=== PATIENT | female | born 1955 | race Caucasian/White ===

== ENCOUNTER 2017-05-30 07:33 | Day surgery (SDC) | payer OTHER, SELFPAY ==
[2017-05-29 15:21] VITALS: BMI 37.5
[2017-05-30 08:23] VITALS: BP 102/59; PULSE 66; RESP 18; TEMP 37.1; O2SAT 97
[2017-05-30 08:54] LABS: Basophils # 0.1 K/mm3 (0-0.2); Basophils % 0.7 % (0.1-2.0); Eosinophils # 0.3 K/mm3 (0.0-0.4); Eosinophils % 4.5 % (0.1-12.0); Hematocrit 39.1 % (37.0-47.0); Hemoglobin 13.1 g/dL (12.2-16.2); Lymphocytes # 1.9 K/mm3 (0.7-4.5); Lymphocytes % 25.2 K/mm3 (10-50); Mean Corpuscular HGB Conc 33.7 g/dL (31.8-35.4); Mean Corpuscular Hemoglobin 28.5 pg (27.0-31.2); Mean Corpuscular Volume 84.6 fl (81-99); Mean Platelet Volume 7.6 fl (7.4-10.4); Monocytes # 0.4 K/mm3 (0.1-1.0); Neutrophils # 4.9 K/mm3 (1.8-7.8); Neutrophils % 64.7 % (37.0-80.0); Platelet Count 343 K/mm3 (142-424); Red Blood Count 4.62 M/mm3 (4.20-5.40); Red Cell Distribution Width 14.1 % (11.5-17.5); White Blood Count 7.6 K/mm3 (4.8-10.8)
[2017-05-30 08:55] LABS: POC Glucose,Bedside 154 mg/dL
--- NOTE | 2017-05-30 08:58 | P.PN_ITS ---
[facility] Anesthesia Checklist - Patient Identification Patient Identification: Arm Band, Verbal (Name & ) - Structural Data Admitted From: Home Planned Operative Procedure/s: pacmaker generator change Consent for Planned Operative Procedure(s) Verified: Yes Verified Documents: Surgical Consent - NPO Status Verified Time NPO: 00:00 - Chart Verification Results Verified: CBC, BMP - Additional verifications Patient : No Anesthesia Reactions: No Hx Blood Transfusions: No Blood Transfusion Reaction: No - Cardiovascular Assessment Heart Sounds: S1 & S2 Pulse Strength: Baseline Pulse Rhythm: Regular Peripheral Edema: No - Airway Assessment C-Spine Mobility Assessed: Yes TMJ Mobility Assessed: Yes Dentition: Edentulous - Neurological Assessment Level of Consciousness: Awake, Alert, Appropriate Hx Seizures: No Numbness or tingling in extremities: No - Genitourinary Assessment Voided health information manager to O.R.: Yes - Anesthesia Plan Anesthesia Risk discussed: Yes Anesthesia Plan: Verified ASA Class: III Anesthesia Type: MAC [facility] Anesthesia HX I have reviewed the patient's past medical history: Yes Medical History: Reports:: Diabetes Mellitus Type 2 (borderline), Hyperlipidemia , Hypertension, Internal Pacemaker Denies:: Cancer, Diabetes Mellitus Type 1, MRSA, Seizures Other Surgeries: Yes: , Hernia Repair, Pacemaker, Tubal Ligation Amputation: No *Family Hx:: Coronary Artery Disease, Heart Attack, Hypertension
[2017-05-30 09:00] LABS: Anion Gap 15.2 mEq/L (5-15); Blood Urea Nitrogen 29 mg/dL (7-18); Carbon Dioxide 25 mmol/L (21.0-32.0); Chloride 102 mmol/L (98-107); Creatinine Clearance Estimated 89 mL/min (0-300); Creatinine,Serum 1.08 mg/dL (0.55-1.02); Estimated Glomerular Filt Rate 51 ml/min (>60); GFR (African American) 62 ML/MIN (>60); Glucose 151 mg/dL (74-106); Potassium 4.2 mmoL/L (3.5-5.1); Sodium 138 mmol/L (136-145)
[2017-05-30 10:53] VITALS: BP 109/72; PULSE 70; RESP 18; TEMP 36.2; O2SAT 96
--- NOTE | 2017-05-30 11:03 | XR_ITS ---
XR chest portable HISTORY: ITS.REASON: PACEMAKER GENERATOR CHANGE ORDERING PHYSICIAN: Pedrito Gongora MD PATIENT AGE: 61 years COMPARISON: None available FINDINGS: The cardiomediastinal silhouette and pulmonary vascularity are within normal limits. Bipolar pacemaker is present from left subclavian approach. No evidence of pneumothorax or other complication. There is a 9 mm nodular opacity left lung base medially and may be due to granuloma. Follow-up PA and lateral chest may be of further value. IMPRESSION: Pacemaker present without evidence of acute complication
[2017-05-30 11:08] VITALS: BP 85/63; PULSE 70; RESP 18; TEMP 36.2; O2SAT 96
[2017-05-30 11:23] VITALS: BP 92/56; PULSE 70; RESP 18; TEMP 36.2; O2SAT 96
[2017-05-30 11:38] VITALS: BP 90/51; PULSE 69; RESP 18; TEMP 36.2; O2SAT 97
[2017-05-30 12:45] VITALS: BP 91/61; PULSE 70; RESP 18; TEMP 36.2; O2SAT 98
--- NOTE | 2017-05-30 12:48 | SUR.PHASEII ---
1245-DR SHELTON CALLED TO CONFIRM CXR IS OKAY
--- NOTE | 2017-07-04 08:42 | HMH.PACER ---
[facility] Pacemaker - Pacemaker Placement Date of Procedure:: 05/30/17 Time of Procedure:: 09:00 Procedure Performed:: Removal of old pacemaker generator Revision of existing pocket for pacemaker Placement of new pacemaker generator Preoperative Diagnosis:: Device ANGEL Complications:: None Estimated Blood Loss (ml): 10 Technique:: 1% Lidocaine with epinephrine used to anesthetize the left anterior aspect of the chest.Scalpel was used to make the initial cutaneous incision and then used to dissect down to the pacemaker generator. The generator was removed from the existing pocket. Digital manipulation was required along with intermittent usage of scalpel in order to revise the pocket. The pacemaker leads were removed from the old generator and then placed and secured into the new pacemaker generator. Antibiotics were used to flush the pocket and the pacemaker was secured using 3-0 silk into the newly revised pocket. Monocryl was used to close the subcutaneous tissue and then taina were placed on the cutaneous area in order to approximate the incision. The area was sterilely prepped and antibiotics were applied. Patient was transferred to the postop holding area in stable condition - Interrogation Narrative: P wave measures 4.5 mV with a threshold of 0.5V and lead impedance 400 ohms and pulse width .4 s. R wave measures 8.2 mV with a threshold of 1.0V and lead impedance 690 ohms and pulse width .4m ms. DDDR mode with base tracking 70 and maximum 120 New Generator model number [id number] serial number [id number] Chronic Atrial lead model number 4076/46 serial number [id number] Chronic Ventricular lead model number 4076/52 serial number [id number] Explanted Generator model number [id number] serial number [id number] Impression:: Successful removal of old pacemaker generator Successful revision of existing pocket for pacemaker Successful placement of new pacemaker generator Plan: Postoperative wound care
--- NOTE | 2017-07-04 08:47 | P.PCN_ITS ---
[facility] Pacemaker - Pacemaker Placement Date of Procedure:: 05/30/17 Time of Procedure:: 09:00 Procedure Performed:: Removal of old pacemaker generator Revision of existing pocket for pacemaker Placement of new pacemaker generator Preoperative Diagnosis:: Device ANGEL Complications:: None Estimated Blood Loss (ml): 10 Technique:: 1% Lidocaine with epinephrine used to anesthetize the left anterior aspect of the chest.Scalpel was used to make the initial cutaneous incision and then used to dissect down to the pacemaker generator. The generator was removed from the existing pocket. Digital manipulation was required along with intermittent usage of scalpel in order to revise the pocket. The pacemaker leads were removed from the old generator and then placed and secured into the new pacemaker generator. Antibiotics were used to flush the pocket and the pacemaker was secured using 3-0 silk into the newly revised pocket. Monocryl was used to close the subcutaneous tissue and then taina were placed on the cutaneous area in order to approximate the incision. The area was sterilely prepped and antibiotics were applied. Patient was transferred to the postop holding area in stable condition - Interrogation Narrative: P wave measures 4.5 mV with a threshold of 0.5V and lead impedance 400 ohms and pulse width .4 s. R wave measures 8.2 mV with a threshold of 1.0V and lead impedance 690 ohms and pulse width .4m ms. DDDR mode with base tracking 70 and maximum 120 New Generator model number [id number] serial number [id number] Chronic Atrial lead model number 4076/46 serial number [id number] Chronic Ventricular lead model number 4076/52 serial number [id number] Explanted Generator model number [id number] serial number [id number] Impression:: Successful removal of old pacemaker generator Successful revision of existing pocket for pacemaker Successful placement of new pacemaker generator Plan: Postoperative wound care
== END 2017-05-30 12:45 | disposition home or self-care (01) ==
PROVIDERS: PCP Internal Medicine Adolescent Medicine; Visit Provider Internal Medicine
DX: T82.121A Displacement of cardiac pulse generator (battery), initial encounter (principal); Z45.010 Encounter for checking and testing of cardiac pacemaker pulse generator [battery]; I50.30 Unspecified diastolic (congestive) heart failure; I11.0 Hypertensive heart disease with heart failure; E11.9 Type 2 diabetes mellitus without complications; I13.0 Hypertensive heart and chronic kidney disease with heart failure and stage 1 through stage 4 chronic kidney disease, or unspecified chronic kidney disease; E11.22 Type 2 diabetes mellitus with diabetic chronic kidney disease; N18.2 Chronic kidney disease, stage 2 (mild)
CPT/HCPCS: 33228; 71045; 80048; 82962; 85025; 96374; C1785

== ENCOUNTER → 2017-09-06 14:36 | Outpatient (CLI) | payer OTHER, SELFPAY ==
[2017-09-06 18:21] LABS: Alanine Aminotransferase 36 U/L (12-78); Albumin Level 4.2 gm/dL (3.4-5.0); Albumin/Globulin Ratio 1.1 (1.1-1.8); Alkaline Phosphatase 82 U/L (46-116); Anion Gap 15.9 mEq/L (5-15); Aspartate Amino Transferase 31 U/L (15-37); Bilirubin,Total 0.4 mg/dL (0.2-1.0); Blood Urea Nitrogen 26 mg/dL (7-18); Calcium 10.2 mg/dL (8.5-10.1); Carbon Dioxide 27 mmol/L (21.0-32.0); Chloride 103 mmol/L (98-107); Creatinine,Serum 1.06 mg/dL (0.55-1.02); Estimated Glomerular Filt Rate 52 ml/min (>60); GFR (African American) 63 ML/MIN (>60); Globulin 3.7 gm/dl (1.3-3.2); Glucose 95 mg/dL (74-106); Potassium 4.9 mmoL/L (3.5-5.1); Sodium 141 mmol/L (136-145); Total Protein,Serum 7.9 gm/dL (6.4-8.2)
[2017-09-06 18:25] LABS: C-Reactive Protein 0.6 mg/L (0.0-0.9)
[2017-09-06 19:03] LABS: Erythrocyte Sedimentation Rate 43 mm/hr (0-30)
[2017-09-06 19:09] LABS: Hemoglobin A1C 6.3 % (0.0-7.0)
[2017-09-06 19:10] LABS: Amphetamine/Metha Screen,Urine Negative ng/mL (<1000); Barbiturates Screen,Urine Negative ng/mL (<200); Benzodiazepines Screen,Urine Negative ng/mL (200); Cannabinoid Screen,Urine Negative ng/mL (<50); Cocaine Screen,Urine Negative ng/g (<300); Methadone Screen,Urine Negative ng/mL (<300); Opiate Screen,Urine Negative ng/mL (<300); Phencyclidine Screen,Urine Negative ng/mL (<25)
[2017-09-06 19:24] LABS: Basophils % 0.4 % (0.1-2.0); Eosinophils # 0.3 K/mm3 (0.0-0.4); Eosinophils % 4.2 % (0.1-12.0); Hematocrit 34.4 % (37.0-47.0); Hemoglobin 12.6 g/dL (12.2-16.2); Lymphocytes # 1.8 K/mm3 (0.7-4.5); Lymphocytes % 23.3 K/mm3 (10-50); Mean Corpuscular HGB Conc 36.6 g/dL (31.8-35.4); Mean Corpuscular Hemoglobin 30.8 pg (27.0-31.2); Mean Corpuscular Volume 84.2 fl (81-99); Mean Platelet Volume 8.1 fl (7.4-10.4); Monocytes # 0.4 K/mm3 (0.1-1.0); Monocytes % 5.2 % (1.7-9.3); Neutrophils # 5.3 K/mm3 (1.8-7.8); Platelet Count 274 K/mm3 (142-424); Red Blood Count 4.08 M/mm3 (4.20-5.40); Red Cell Distribution Width 14.8 % (11.5-17.5); White Blood Count 7.9 K/mm3 (4.8-10.8)
[2017-09-08 18:15] LABS: Microalbumin, Urine 11.6 ug/mL (Not Estab.); RA Latex Turbid. 23.1 IU/mL (0.0-13.9)
[2017-09-10 15:15] LABS: Anti-Cyclic Citrullinated Pept 7 units (0-19); Anti-DNA (DS) Ab Qn 1 IU/mL (0-9)
== END ==
PROVIDERS: Visit Provider Nurse Practitioner Family
DX: R21 Rash and other nonspecific skin eruption (principal); E11.9 Type 2 diabetes mellitus without complications; Z79.899 Other long term (current) drug therapy
CPT/HCPCS: 80053; 80305; 82043; 83036; 85025; 85651; 86140; 86200; 86225; 86431

== ENCOUNTER → 2017-09-13 07:34 | Outpatient (CLI) | payer OTHER, SELFPAY ==
[2017-09-15 12:12] LABS: PTT-LA 43.1 sec (0.0-51.9)
[2017-09-16 06:10] LABS: dRVVT 44.1 sec (0.0-47.0)
[2017-09-16 15:31] LABS: Lupus Reflex Interpretation Comment: (.)
== END ==
PROVIDERS: Visit Provider Nurse Practitioner Family
DX: R70.0 Elevated erythrocyte sedimentation rate (principal)
CPT/HCPCS: 36415; 85613

== ENCOUNTER → 2017-10-01 13:52 | Outpatient (REF) | payer OTHER, SELFPAY | LOC: LAB 13:52 | PROVIDERS: Visit Provider Nurse Practitioner Family | DX: R35.0 Frequency of micturition (principal) | CPT/HCPCS: 87086; 87088; 87186 ==

== ENCOUNTER → 2017-10-07 09:20 | Outpatient (REF) | payer OTHER, SELFPAY | LOC: LAB 09:20 | PROVIDERS: Visit Provider Nurse Practitioner Family | DX: R35.0 Frequency of micturition (principal) | CPT/HCPCS: 87086 ==

== ENCOUNTER → 2018-01-16 15:48 | Outpatient (REF) | payer OTHER, SELFPAY ==
[2018-01-16 18:12] LABS: Methadone Screen,Urine Negative ng/mL (<300)
[2018-01-16 19:01] LABS: Amphetamine/Metha Screen,Urine Negative ng/mL (<1000); Barbiturates Screen,Urine Negative ng/mL (<200); Benzodiazepines Screen,Urine Negative ng/mL (<200); Cannabinoid Screen,Urine Negative ng/mL (<50); Cocaine Screen,Urine Negative ng/mL (<300); Opiate Screen,Urine Negative ng/mL (<300); Phencyclidine Screen,Urine Negative ng/mL (<25)
== END ==
LOC: LAB 15:48
PROVIDERS: Visit Provider Nurse Practitioner Family
DX: Z79.899 Other long term (current) drug therapy (principal)
CPT/HCPCS: 80305

== ENCOUNTER → 2018-03-28 07:07 | Outpatient (CLI) | payer OTHER, SELFPAY ==
[2018-03-28 07:56] LABS: Basophils # 0.1 K/mm3 (0-0.2); Eosinophils # 0.3 K/mm3 (0.0-0.4); Eosinophils % 4.4 % (0.1-12.0); Hematocrit 40.8 % (37.0-47.0); Hemoglobin 12.9 g/dL (12.2-16.2); Lymphocytes # 1.8 K/mm3 (0.7-4.5); Lymphocytes % 31.6 % (10-50); Mean Corpuscular HGB Conc 31.6 g/dL (31.8-35.4); Mean Corpuscular Hemoglobin 27.4 pg (27.0-31.2); Mean Corpuscular Volume 86.8 fl (81-99); Mean Platelet Volume 7.2 fl (7.4-10.4); Monocytes # 0.4 K/mm3 (0.1-1.0); Neutrophils # 3.3 K/mm3 (1.8-7.8); Neutrophils % 56.9 % (37.0-80.0); Platelet Count 239 K/mm3 (142-424); Red Blood Count 4.71 M/mm3 (4.20-5.40); Red Cell Distribution Width 15.3 % (11.5-17.5); White Blood Count 5.8 K/mm3 (4.8-10.8)
[2018-03-28 09:18] LABS: Alanine Aminotransferase 31 U/L (12-78); Albumin Level 3.8 gm/dL (3.4-5.0); Albumin/Globulin Ratio 1.1 (1.1-1.8); Alkaline Phosphatase 95 U/L (46-116); Anion Gap 11.8 mEq/L (5-15); Aspartate Amino Transferase 17 U/L (15-37); Bilirubin,Total 0.4 mg/dL (0.2-1.0); Blood Urea Nitrogen 15 mg/dL (7-18); Calcium 8.7 mg/dL (8.5-10.1); Carbon Dioxide 31 mmol/L (21.0-32.0); Chloride 103 mmol/L (98-107); Chol/HDL Ratio 4.1 (1-3.5); Cholesterol 134 mg/dL (140-200); Estimated Glomerular Filt Rate 63 ml/min (>60); GFR (African American) 76 ML/MIN (>60); Globulin 3.6 gm/dl (1.3-3.2); Glucose 164 mg/dL (74-106); HDL Cholesterol 33 mg/dL (29-89); LDL Cholesterol 63 mg/dL (0-130); Potassium 4.8 mmoL/L (3.5-5.1); Sodium 141 mmol/L (136-145); Thyroid Stimulating Hormone 5.05 uIU/ml (0.358-3.740); Total Protein,Serum 7.4 gm/dL (6.4-8.2); Triglycerides 192 mg/dL (30-200); VLDL Cholesterol 38 mg/dL (0-40)
[2018-03-31 09:34] LABS: Vitamin D 25 Hydroxy 32.5 ng/mL (30.0-100.0)
[2018-03-31 09:35] LABS: Microalbumin, Urine 36.6 ug/mL (Not Estab.)
== END ==
PROVIDERS: Visit Provider Nurse Practitioner Family
DX: E11.9 Type 2 diabetes mellitus without complications (principal); E66.9 Obesity, unspecified; E78.5 Hyperlipidemia, unspecified
CPT/HCPCS: 36415; 80053; 80061; 82043; 82652; 83036; 84436; 84443; 85025

== ENCOUNTER → 2018-05-21 14:14 | Outpatient (CLI) | payer OTHER, SELFPAY ==
[2018-05-21 14:44] LABS: Amphetamine/Metha Screen,Urine Negative ng/mL (<1000); Barbiturates Screen,Urine Negative ng/mL (<200); Benzodiazepines Screen,Urine Negative ng/mL (<200); Cannabinoid Screen,Urine Negative ng/mL (<50); Cocaine Screen,Urine Negative ng/mL (<300); Methadone Screen,Urine Negative ng/mL (<300); Opiate Screen,Urine Negative ng/mL (<300); Phencyclidine Screen,Urine Negative ng/mL (<25)
== END ==
PROVIDERS: Visit Provider Nurse Practitioner Family
DX: Z79.899 Other long term (current) drug therapy (principal)
CPT/HCPCS: 80305

== ENCOUNTER → 2018-06-05 09:22 | Outpatient (CLI) | payer OTHER, SELFPAY ==
--- NOTE | 2018-06-05 09:24 | MM_ITS ---
MM Dig screening mamm BI w/CAD ORDERING PHYSICIAN : Mable Lan PATIENT AGE: 62 years GENDER: Female COMPARISON: [facility] mammograms February 2015, January 2014, December 2012, INDICATION: Routine no hormones no new complaints noncontributory family history.: screening TECHNIQUE: Standard CC and MLO images were obtained. R2 CAD reviewed. FINDINGS: Lower density breast with generalized fatty replacement. No new areas of concern . No dominant mass nor suspicious calcifications There are in numerable tiny punctate calcifications projected over both right and left breast. I believe these are mainly skin, dermal calcifications. They have been present since 2013 with only slight increased number. RIGHT BREAST:No new findings of significant concern. LEFT BREAST:No new findings of significant concern A few small areas of, minimal density at the lateral left breast on cc view appear similar studies dating back to 2014. Not of significant concern. Pacemaker overlies the upper-outer quadrant left breast but does not interfere with study. IMPRESSION: Stable bilateral mammogram. No new areas of concern BI-RADS Category: 1 Negative RECOMMENDED FOLLOW-UP: 1YR 1 YEAR FOLLOW-UP (A letter has been sent to the patient regarding results of the study.)
== END ==
PROVIDERS: PCP Nurse Practitioner Family; Visit Provider Nurse Practitioner Family
DX: Z12.31 Encounter for screening mammogram for malignant neoplasm of breast (principal)
CPT/HCPCS: 77067

== ENCOUNTER → 2018-07-24 16:37 | Outpatient (CLI) | payer OTHER, SELFPAY ==
[2018-07-24 17:23] LABS: Basophils % 0.6 % (0.1-2.0); Eosinophils # 0.2 K/mm3 (0.0-0.4); Eosinophils % 3.1 % (0.1-12.0); Hematocrit 39.9 % (37.0-47.0); Hemoglobin 13.5 g/dL (12.2-16.2); Mean Corpuscular HGB Conc 33.7 g/dL (31.8-35.4); Mean Corpuscular Volume 82.9 fl (81-99); Mean Platelet Volume 7.8 fl (7.4-10.4); Monocytes # 0.4 K/mm3 (0.1-1.0); Monocytes % 4.5 % (1.7-9.3); Neutrophils # 5.1 K/mm3 (1.8-7.8); Neutrophils % 65.8 % (37.0-80.0); Platelet Count 268 K/mm3 (142-424); Red Blood Count 4.81 M/mm3 (4.20-5.40); Red Cell Distribution Width 14.7 % (11.5-17.5); White Blood Count 7.7 K/mm3 (4.8-10.8)
[2018-07-24 18:04] LABS: Alanine Aminotransferase 28 U/L (12-78); Albumin Level 4.2 gm/dL (3.4-5.0); Albumin/Globulin Ratio 1.2 (1.1-1.8); Alkaline Phosphatase 87 U/L (46-116); Anion Gap 17.8 mEq/L (5-15); Aspartate Amino Transferase 25 U/L (15-37); Bilirubin,Total 0.5 mg/dL (0.2-1.0); Blood Urea Nitrogen 19 mg/dL (7-18); Calcium 8.9 mg/dL (8.5-10.1); Carbon Dioxide 26 mmol/L (21.0-32.0); Chloride 103 mmol/L (98-107); Chol/HDL Ratio 5.3 (1-3.5); Cholesterol 148 mg/dL (140-200); Creatinine,Serum 1.07 mg/dL (0.55-1.02); Estimated Glomerular Filt Rate 52 ml/min (>60); Free T4 (Free Thyroxine) 1.02 ng/dl (0.76-1.46); GFR (African American) 62 ML/MIN (>60); Globulin 3.6 gm/dl (1.3-3.2); Glucose 107 mg/dL (74-106); HDL Cholesterol 28 mg/dL (29-89); LDL Cholesterol 63 mg/dL (0-130); Potassium 3.8 mmoL/L (3.5-5.1); Sodium 143 mmol/L (136-145); Thyroid Stimulating Hormone 6.52 uIU/ml (0.358-3.740); Total Protein,Serum 7.8 gm/dL (6.4-8.2); Triglycerides 283 mg/dL (30-200); VLDL Cholesterol 57 mg/dL (0-40)
[2018-07-24 19:59] LABS: Hemoglobin A1C 6.5 % (0.0-7.0)
== END ==
PROVIDERS: Visit Provider Nurse Practitioner Family
DX: E11.9 Type 2 diabetes mellitus without complications (principal); Z79.84 Long term (current) use of oral hypoglycemic drugs
CPT/HCPCS: 80053; 80061; 83036; 84439; 84443; 85025

== ENCOUNTER → 2018-09-12 15:31 | Outpatient (CLI) | payer OTHER, SELFPAY ==
[2018-09-12 16:20] LABS: Amphetamine/Metha Screen,Urine Negative ng/mL (<1000); Barbiturates Screen,Urine Negative ng/mL (<200); Benzodiazepines Screen,Urine Negative ng/mL (<200); Cannabinoid Screen,Urine Negative ng/mL (<50); Cocaine Screen,Urine Negative ng/mL (<300); Methadone Screen,Urine Negative ng/mL (<300); Opiate Screen,Urine Negative ng/mL (<300); Phencyclidine Screen,Urine Negative ng/mL (<25)
[2018-09-14 17:32] LABS: Microalbumin, Urine 108.5 ug/mL (Not Estab.)
== END ==
PROVIDERS: Visit Provider Nurse Practitioner Family
DX: E11.9 Type 2 diabetes mellitus without complications (principal); Z79.899 Other long term (current) drug therapy; Z79.84 Long term (current) use of oral hypoglycemic drugs
CPT/HCPCS: 80305; 82043

== ENCOUNTER → 2018-12-12 14:29 | Outpatient (CLI) | payer MEDICARE, SELFPAY ==
[2018-12-12 15:21] LABS: Amphetamine/Metha Screen,Urine Negative ng/mL (<1000); Barbiturates Screen,Urine Negative ng/mL (<200); Benzodiazepines Screen,Urine Negative ng/mL (<200); Cannabinoid Screen,Urine Negative ng/mL (<50); Cocaine Screen,Urine Negative ng/mL (<300); Methadone Screen,Urine Negative ng/mL (<300); Opiate Screen,Urine Negative ng/mL (<300); Phencyclidine Screen,Urine Negative ng/mL (<25)
[2018-12-14 16:37] LABS: Microalbumin, Urine 60.3 ug/mL (Not Estab.)
== END ==
PROVIDERS: Visit Provider Nurse Practitioner Family
DX: E11.9 Type 2 diabetes mellitus without complications (principal); Z79.899 Other long term (current) drug therapy; Z79.84 Long term (current) use of oral hypoglycemic drugs
CPT/HCPCS: 80305; 82043

== ENCOUNTER → 2018-12-13 07:12 | Outpatient (CLI) | payer MEDICARE, SELFPAY ==
[2018-12-13 08:01] LABS: Basophils # 0.1 K/mm3 (0-0.2); Basophils % 0.8 % (0.1-2.0); Eosinophils # 0.2 K/mm3 (0.0-0.4); Eosinophils % 2.9 % (0.1-12.0); Hematocrit 41.4 % (37.0-47.0); Hemoglobin 13.7 g/dL (12.2-16.2); Lymphocytes # 1.8 K/mm3 (0.7-4.5); Lymphocytes % 28.4 % (10-50); Mean Corpuscular Hemoglobin 28.6 pg (27.0-31.2); Mean Corpuscular Volume 86.7 fl (81-99); Mean Platelet Volume 6.9 fl (7.4-10.4); Monocytes # 0.3 K/mm3 (0.1-1.0); Monocytes % 4.5 % (1.7-9.3); Neutrophils % 63.4 % (37.0-80.0); Platelet Count 249 K/mm3 (142-424); Red Blood Count 4.77 M/mm3 (4.20-5.40); Red Cell Distribution Width 15.2 % (11.5-17.5); White Blood Count 6.4 K/mm3 (4.8-10.8)
[2018-12-13 08:33] LABS: Hemoglobin A1C 6.8 % (0.0-7.0)
[2018-12-13 09:01] LABS: Alanine Aminotransferase 32 U/L (12-78); Albumin/Globulin Ratio 1.1 (1.1-1.8); Alkaline Phosphatase 86 U/L (46-116); Anion Gap 13.2 mEq/L (5-15); Aspartate Amino Transferase 22 U/L (15-37); Bilirubin,Total 0.6 mg/dL (0.2-1.0); Blood Urea Nitrogen 19 mg/dL (7-18); Calcium 8.9 mg/dL (8.5-10.1); Carbon Dioxide 29 mmol/L (21.0-32.0); Chloride 102 mmol/L (98-107); Chol/HDL Ratio 4.1 (1-3.5); Cholesterol 131 mg/dL (140-200); Creatinine,Serum 1.03 mg/dL (0.55-1.02); Estimated Glomerular Filt Rate 54 ml/min (>60); GFR (African American) 65 ML/MIN (>60); Globulin 3.6 gm/dl (1.3-3.2); Glucose 122 mg/dL (74-106); HDL Cholesterol 32 mg/dL (29-89); LDL Cholesterol 67 mg/dL (0-130); Potassium 4.2 mmoL/L (3.5-5.1); Sodium 140 mmol/L (136-145); T4 (Thyroxine) 9.1 ug/dl (4.7-13.3); Thyroid Stimulating Hormone 5.41 uIU/ml (0.358-3.740); Total Protein,Serum 7.6 gm/dL (6.4-8.2); Triglycerides 158 mg/dL (30-200); VLDL Cholesterol 32 mg/dL (0-40)
[2018-12-15 10:26] LABS: Vitamin D 25 Hydroxy 30.6 ng/mL (30.0-100.0)
== END ==
PROVIDERS: Visit Provider Nurse Practitioner Family
DX: R42 Dizziness and giddiness (principal); E11.9 Type 2 diabetes mellitus without complications; G47.9 Sleep disorder, unspecified; R53.83 Other fatigue; E66.9 Obesity, unspecified; Z79.84 Long term (current) use of oral hypoglycemic drugs
CPT/HCPCS: 36415; 80053; 80061; 82652; 83036; 84436; 84443; 85025

== ENCOUNTER → 2018-12-25 15:58 | Outpatient (CLI) | payer MEDICARE, SELFPAY | PROVIDERS: Visit Provider Nurse Practitioner Family | DX: R35.0 Frequency of micturition (principal) | CPT/HCPCS: 87086 ==

== ENCOUNTER → 2019-01-05 14:10 | Outpatient (CLI) | payer MEDICARE, SELFPAY | PROVIDERS: Visit Provider Nurse Practitioner Family | DX: N39.0 Urinary tract infection, site not specified (principal) | CPT/HCPCS: 87086 ==

== ENCOUNTER → 2019-05-18 12:50 | Outpatient (POV) | payer MEDICARE, SELFPAY ==
[2019-05-18 13:08] VITALS: BP 135/91; PULSE 74; RESP 18; O2SAT 99; BMI 37.3
--- NOTE | 2019-05-18 13:52 | XR_ITS ---
PROCEDURE: XR KNEE LT 3V CLINICAL INDICATION: LOW BACK PAIN,LEG PAIN COMPARISON: No exams were available for comparison FINDINGS: No fracture or dislocation. No lytic or blastic change. There is normal mineralization. The joint spaces are well-preserved. No significant degenerative/arthritic changes. No erosive changes evident. Other findings:None. IMPRESSION: No acute findings. Dictated by: Jayy Franco 05/18/2019 16:32 Electronically signed by Jayy Franco in [place] 05/18/2019 16:32
--- NOTE | 2019-05-18 13:52 | XR_ITS ---
PROCEDURE: XR HIP LT 2-3V W/PELVIS CLINICAL INDICATION: LOW BACK PAIN,LEG PAIN COMPARISON: No exams were available for comparison FINDINGS: No fracture or dislocation is evident. There is moderate degenerative joint disease at both hip joints left greater than right. Degenerative disc disease is noted L3-4 through L5-S1. No lytic or blastic change. Unremarkable soft tissues. IMPRESSION: No acute findings. Osteoarthritis both hips and degenerative disc disease. Dictated by: Jayy Franco 05/18/2019 16:29 Electronically signed by Jayy rFanco in [place] 05/18/2019 16:29
--- NOTE | 2019-05-18 13:52 | XR_ITS ---
PROCEDURE: XR SACROILIAC JOINT BI MIN 3V CLINICAL INDICATION: LOW BACK PAIN,LEG PAIN COMPARISON: No exams were available for comparison FINDINGS: There is mild sclerosis of both sacroiliac joints without ankylosis compatible with mild bilateral sacroiliitis. IMPRESSION: Mild bilateral sacroiliitis. Dictated by: Jayy Franco 05/18/2019 16:33 Electronically signed by Jayy Franco in [place] 05/18/2019 16:33
--- NOTE | 2019-05-19 12:27 | HMH.PMCON ---
Assessment and Plan (1) Low back pain Current visit: Yes Status: Chronic Category: Medical Code(s): M54.5 - Low back pain (2) Hip pain Current visit: Yes Status: Chronic Category: Medical Code(s): M25.559 - Pain in unspecified hip (3) Knee pain Current visit: Yes Status: Chronic Category: Medical Code(s): M25.569 - Pain in unspecified knee (4) SI (sacroiliac) pain Current visit: Yes Status: Chronic Category: Medical Code(s): M53.3 - Sacrococcygeal disorders, not elsewhere classified - Assessment and plan all Dx Assessment and Plan for all problems:: We will schedule some diagnostic imaging for the patient follow-up with her in 1 week reassess her symptoms at that time she is been instructed to call the office if she has any issues prior to her next appointment. Dr. Chaidez has reviewed this note and agrees with this plan of care. This note was dictated using voice recognition software and may contain errors or omissions HPI - Data of Consult Consult date: 05/18/19 Requesting Physician: Brigette Somers APRN Primary Care Provider: Dwight Cassidy MD - Consult Narrative Reason for consult: Left hip and leg pain History of present illness: Ms. Echeverria is a 63 year old female who presents today for consultation in regards to her left hip and leg pain. Patient has had this pain for years intermittently. She rates her pain today a 1 out of 10. Patient is on gabapentin which has helped her. Patient states that she would like to get to the bottom of why she is having this pain. She did have a MRI that showed some degenerative changes nothing specifically on the left side I did discuss potential hip issues potential knee issues and potential SI joint issues. We will order some diagnostic imaging of these. CC: Brigette Somers APRN [facility] History I have reviewed the patient's past medical history: Yes Medical History: Reports:: Diabetes Mellitus Type 2, Hyperlipidemia, Hypertension, Internal Pacemaker Denies:: Cancer, Diabetes Mellitus Type 1, MRSA, Seizures *Have you ever received a pneumonia vaccine?: Yes *Have you received a flu vaccine this season?: Yes Other Medical History: Reports: Other. Denies: Blood Transfusion Reaction Other Surgeries: Yes: Cardiac Catheterization, Cardiac Surgery, Colonoscopy, , Hernia Repair, Pacemaker, Tubal Ligation, Other (PPM battery change 2018) Amputation: No Fractures: No - *Social History Smoking Status: Former smoker Alcohol Intake: never Alcohol Intake Frequency:: other Substance Use Type: denies use *Occupational Status:: other Housing: house Household Members: spouse *Travel in the last 8 weeks: None Family Hx:: Coronary Artery Disease, Heart Attack, Hypertension, Cancer Review of Systems - Review of Systems ROS General: no recent weight change, no fever, no sleep disturbances Respiratory: no cough, no shortness of air, no recurring pulmonary infections Cardiovascular/Peripheral Vascular: No chest pain, No palpitations, no edema, no shortness of breath. Gastrointestinal: no new onset incontinence, normal bowel movements reported Genitourinary: no new onset incontinence Musculoskeletal: Left leg and hip pain Psychiatric: normal mood/ affect Neurological: [denies new onset weakness in extremities], [denies new onset balance issues] Meds Home Medications Medication Instructions Recorded Confirmed Type aspirin 81 mg tablet,delayed 81 mg PO DAILY #90 tab 03/20/19 03/20/19 Rx release carvedilol 3.125 mg tablet 3.125 mg PO BID #60 tab 03/20/19 03/20/19 Rx flu vacc [id number](65yr up)PF 180 IM #1 ml 03/20/19 03/20/19 History mcg/0.5 mL intramuscular syringe gabapentin 100 mg capsule 100 mg PO TID #90 cap 03/20/19 03/20/19 Rx levothyroxine 150 mcg tablet 150 mcg PO DAILY #90 tab 03/20/19 03/20/19 Rx lisinopril 2.5 mg tablet 2.5 mg PO DAILY #90 tab 03/20/19 03/20/19 Rx metformin 500 mg tablet 500 mg PO QDAY #90
== END ==
PROVIDERS: PCP Emergency Medicine; Visit Provider Clinical Nurse Specialist Family Health
DX: M54.5 Low back pain (principal); M25.559 Pain in unspecified hip; M25.569 Pain in unspecified knee; M53.3 Sacrococcygeal disorders, not elsewhere classified; E11.9 Type 2 diabetes mellitus without complications; E78.5 Hyperlipidemia, unspecified; I10 Essential (primary) hypertension; Z95.0 Presence of cardiac pacemaker; Z79.82 Long term (current) use of aspirin; Z79.84 Long term (current) use of oral hypoglycemic drugs; Z79.899 Other long term (current) drug therapy
CPT/HCPCS: 72202; 73502; 73562; 99202

== ENCOUNTER → 2019-06-02 09:58 | Outpatient (POV) | payer MEDICARE, SELFPAY ==
[2019-06-02 10:08] VITALS: BP 123/82; PULSE 87; RESP 18; O2SAT 99; BMI 36.8
--- NOTE | 2019-06-02 12:20 | P.CONS_ITS ---
[facility] Pain Management SOAP Note Subjective:: The patient is a pleasant 63-year-old white female who presents today for follow-up after diagnostic imaging. Patient had some mild sacroiliitis, osteoarthritis in her bilateral hips as well. Patient denies any pain today overall doing well ROS General: no recent weight change, no fever, no sleep disturbances Respiratory: no cough, no shortness of air, no recurring pulmonary infections Cardiovascular/Peripheral Vascular: No chest pain, No palpitations, no edema, no shortness of breath. Gastrointestinal: no new onset incontinence, normal bowel movements reported Genitourinary: no new onset incontinence Musculoskeletal: Bilateral hip pain at times Psychiatric: normal mood/ affect, Neurological: [denies new onset weakness in extremities], [denies new onset balance issues] Objective:: Physical Exam General: Alert and oriented x3, no acute distress, pleasant and cooperative, [on room air] Lungs: Resps E/U, Symmetrical chest expansion, Eyes: PERRL Musculoskeletal: Flexion and extension of lumbar spine somewhat guarded secondary to pain, deep tendon reflexes normal, strength in upper and lower extremities [5/5], slightly antalgic gait noted Neurological: speech clear, critical care specialist equal, no gross sensory deficits Assessment:: Osteoarthritis, hip pain, SI joint pain at times Plan:: We will see the patient back on an as-needed basis at this time she is doing well. Dr. Chaidez has reviewed this note and agrees with this plan of care. This note was dictated using voice recognition software and may contain errors or omissions [facility] History I have reviewed the patient's past medical history: Yes Medical History: Reports:: Diabetes Mellitus Type 2, Hyperlipidemia, Hypertension, Internal Pacemaker Denies:: Cancer, Diabetes Mellitus Type 1, MRSA, Seizures *Have you ever received a pneumonia vaccine?: Yes *Have you received a flu vaccine this season?: Yes Other Medical History: Reports: Other. Denies: Blood Transfusion Reaction Other Surgeries: Yes: Cardiac Catheterization, Cardiac Surgery, Colonoscopy, C- section, Hernia Repair, Pacemaker, Tubal Ligation, Other (PPM battery change 2017) Amputation: No Fractures: No - *Social History Smoking Status: Former smoker Alcohol Intake: never Alcohol Intake Frequency:: other Substance Use Type: denies use *Occupational Status:: other Housing: house Household Members: spouse *Travel in the last 8 weeks: None Family Hx:: Coronary Artery Disease, Heart Attack, Hypertension, Cancer
== END ==
PROVIDERS: PCP Nurse Practitioner Family; Visit Provider Clinical Nurse Specialist Family Health
DX: M19.90 Unspecified osteoarthritis, unspecified site (principal); M25.559 Pain in unspecified hip
CPT/HCPCS: 99212

== ENCOUNTER → 2019-06-03 07:41 | Outpatient (CLI) | payer MEDICARE, SELFPAY ==
--- NOTE | 2019-06-03 07:42 | CA_ITS ---
APPROVED REPORT EXAM: Comprehensive 2D, Doppler, and color-flow Echocardiogram Cutting Table Operator: Shy Vasquez RVT Ht: 5 ft 6 in Wt: 228lbs BSA: 2.11 BP: 119/73 mmHg Indications: DD,Pacer, HTN,HLD Obesity 2D Dimensions LVOT 2.47 cm (M/F) 1.5-2.5 M-Mode Dimensions RVDd 2.66 cm (0.9-2.6) LVDd 4.06 cm (3.5-5.7) LVDs 2.90 cm (3.5-5.7) IVSd 0.93 cm (0.6-1.1) PWd 1.37 cm (0.6-1.1) EF (Teich) 55.60% FS 28.60% EDV (Teich) 72.50 mL ESV (Teich) 32.20 mL LV Diastology E/A Ratio 0.74 Mitral Valve MV A Velocity 80.00 (40-130 cm/s) Left Ventricle Left atrium is mildly enlarged, left ventricle is normal size, mild concentric left ventricular hypertrophy, visually estimated ejection fraction 55% with no regional wall motion abnormality. Grade 1 diastolic dysfunction seen without tissue Doppler evidence of raise left atrial pressure. Right Ventricle Right atrium and right ventricle is normal size and contractility. There is a pacemaker lead seen right ventricle. Aortic Valve Aortic valve is minimally thickened and fibrosed. There is no aortic stenosis aortic insufficiency. Mitral Valve Mitral valve is minimally thickened, there is mild mitral regurgitation. Tricuspid Valve Tricuspid valve is grossly normal, there is mild tricuspid regurgitation. Tricuspid regurgitation jet velocity is inadequate for calculation of the right ventricular systolic pressure. Pulmonic Valve Pulmonic valve is poorly visualized. Great Vessels Aortic root is normal size. Pericardium No significant pericardial effusion noted. Conclusion 1. Normal left ventricular size, mild concentric left ventricular hypertrophy, visually estimated ejection fraction 55% with no regional wall motion abnormality, grade 1 diastolic dysfunction seen without tissue Doppler evidence of raise left atrial pressure. 2. Pacemaker lead seen in the right ventricle. 3. Mild mitral and tricuspid regurgitation. 4. No significant pericardial effusion noted. Electronically signed by : Rudy Salcedo, 06/04/2019 16:24:09
== END ==
PROVIDERS: PCP Emergency Medicine; Visit Provider Urology
DX: R42 Dizziness and giddiness; E78.5 Hyperlipidemia, unspecified; G47.33 Obstructive sleep apnea (adult) (pediatric); I10 Essential (primary) hypertension; Z95.0 Presence of cardiac pacemaker
CPT/HCPCS: 93306

== ENCOUNTER → 2019-06-10 07:38 | Outpatient (CLI) | payer MEDICARE, SELFPAY ==
--- NOTE | 2019-06-10 07:38 | MM_ITS ---
PROCEDURE: MM DIG SCREENING MAMM BI W/CAD CLINICAL INDICATION: screening There is no personal or family history of breast cancer. COMPARISON: [facility] MM Dig screening mamm BI w/CAD from 06/05/2018 TECHNIQUE: Standard CC and MLO images and 3D Tomosynthesis was obtained. R2 CAD reviewed. FINDINGS: The breasts are composed primarily of fat with scattered fibroglandular densities throughout each breast slightly more prominent right breast than left there are scattered benign-appearing microcalcifications in each breast some of which are cutaneous in nature. There is a cardiac pacemaker device overlying the axilla left breast. There is no suspicious lesion in either breast and no suspicious microcalcifications. IMPRESSION: Fibrofatty parenchyma with no suspicious lesions seen BI-RAD Category: 2 Benign Finding(s) FOLLOW-UP: 1YR 1 Year Follow-up (A letter has been sent to the patient regarding results of the study.) Dictated by: Dr. Augustine Bryant MD 06/11/2019 10:[address] Augustine Bryant MD in [place] 06/11/2019 10:45
== END ==
PROVIDERS: PCP Nurse Practitioner Family; Visit Provider Nurse Practitioner Family
DX: Z12.31 Encounter for screening mammogram for malignant neoplasm of breast (principal)
CPT/HCPCS: 77063; 77067

== ENCOUNTER → 2019-06-16 09:17 | Outpatient (CLI) | payer MEDICARE, SELFPAY ==
[2019-06-16 11:40] LABS: Anion Gap 14.3 mEq/L (5-15); Blood Urea Nitrogen 20 mg/dl (7-17); Calcium 9.6 mg/dl (8.4-10.2); Carbon Dioxide 27 mmol/L (22.0-30.0); Chloride 99 mmol/L (98-107); Estimated Glomerular Filt Rate 45 ml/min (>60); GFR (African American) 55 ML/MIN (>60); Glucose 166 mg/dl (74-100); Potassium 5.3 mmoL/L (3.5-5.1); Sodium 135 mmol/L (136-145)
== END ==
PROVIDERS: Visit Provider Physician Assistant
DX: I50.30 Unspecified diastolic (congestive) heart failure (principal)
CPT/HCPCS: 36415; 80048

== ENCOUNTER → 2019-06-25 13:27 | Outpatient (CLI) | payer MEDICARE, SELFPAY ==
[2019-06-25 13:40] LABS: Basophils # 0.1 K/mm3 (0-0.2); Basophils % 0.7 % (0.1-2.0); Eosinophils # 0.2 K/mm3 (0.0-0.4); Hematocrit 39.5 % (37.0-47.0); Hemoglobin 12.6 g/dL (12.2-16.2); Lymphocytes # 1.6 K/mm3 (0.7-4.5); Lymphocytes % 22.2 % (10-50); Mean Corpuscular Hemoglobin 27.3 pg (27.0-31.2); Mean Corpuscular Volume 85.1 fl (81-99); Mean Platelet Volume 7.7 fl (7.4-10.4); Monocytes # 0.3 K/mm3 (0.1-1.0); Monocytes % 4.5 % (1.7-9.3); Neutrophils # 4.9 K/mm3 (1.8-7.8); Neutrophils % 69.7 % (37.0-80.0); Platelet Count 273 K/mm3 (142-424); Red Blood Count 4.64 M/mm3 (4.20-5.40); Red Cell Distribution Width 14.7 % (11.5-17.5)
[2019-06-25 14:08] LABS: Hemoglobin A1C 7.8 % (4.0-6.0)
[2019-06-25 14:10] LABS: Chloride 100 mmol/L (98-107); Potassium 4.3 mmoL/L (3.5-5.1); Sodium 140 mmol/L (136-145)
[2019-06-25 14:12] LABS: Blood Urea Nitrogen 16 mg/dl (7-17); Estimated Glomerular Filt Rate 45 ml/min (>60); GFR (African American) 55 ML/MIN (>60)
[2019-06-25 14:13] LABS: Alanine Aminotransferase 25 U/L (12-78); Albumin Level 4.4 g/dl (3.5-5.0); Albumin/Globulin Ratio 1.6 (1.1-1.8); Alkaline Phosphatase 89 U/L (38-126); Anion Gap 14.3 mEq/L (5-15); Aspartate Amino Transferase 27 U/L (14-36); Bilirubin,Total 0.5 mg/dl (0.2-1.3); Calcium 9.2 mg/dl (8.4-10.2); Carbon Dioxide 30 mmol/L (22.0-30.0); Chol/HDL Ratio 4.4 (1-3.5); Cholesterol 140 mg/dl (140-200); Globulin 2.8 g/dL (1.3-3.2); Glucose 149 mg/dl (74-100); HDL Cholesterol 32 mg/dl (40-60); Total Protein,Serum 7.2 g/dl (6.3-8.2); Triglycerides 211 mg/dl (30-150); VLDL Cholesterol 42 mg/dL (0-40)
[2019-06-25 14:25] LABS: Direct LDL Cholesterol 76.65 mg/dL (100-129)
[2019-06-25 14:31] LABS: T4 (Thyroxine) 10.8 ug/dl (5.53-11.0)
[2019-06-25 14:44] LABS: Thyroid Stimulating Hormone 0.48 uIU/mL (0.465-4.68)
[2019-06-26 10:17] LABS: Vitamin D 25 Hydroxy 18.6 ng/mL (30.0-100.0)
[2019-06-26 10:52] LABS: Creatinine, Urine 198.8 mg/dL (Not Estab.); Microalbumin, Urine 101.4 ug/mL (Not Estab.)
== END ==
PROVIDERS: Visit Provider Nurse Practitioner Family
DX: E11.9 Type 2 diabetes mellitus without complications (principal); M54.5 Low back pain; Z79.84 Long term (current) use of oral hypoglycemic drugs; E55.9 Vitamin D deficiency, unspecified
CPT/HCPCS: 80053; 80061; 82043; 82570; 82652; 83036; 84436; 84443; 85025

== ENCOUNTER 2019-08-06 14:12 | Emergency (ER) | payer MEDICARE, SELFPAY ==
[2019-08-06 14:13] VITALS: BP 127/73; PULSE 70; RESP 17; O2SAT 99; BMI 37.1
--- NOTE | 2019-08-06 14:31 | CT_ITS ---
PROCEDURE: CT ABDOMEN PELVIS WO CON CLINICAL INDICATION: HEMATURIA Hematuria, left flank pain COMPARISON: No exams were available for comparison TECHNIQUE: Axial images obtained with sagittal and coronal reformats. All CT scans at the facility use one or more dose reduction, viz: automated exposure control, ma/kV adjustment per patient size (including targeted exams where dose is matched to indication, i.e. head), or iterative reconstruction technique. FINDINGS: LOWER THORAX: Pacemaker device is present. Calcified granuloma is present in the left lung base. ABDOMEN & PELVIS: There is a nonspecific 9 mm hypodensity in the caudate lobe of the liver. There is mild fatty liver infiltration. The spleen, adrenal glands, pancreas, gallbladder, and right kidney have an unremarkable appearance. There is an oval 17 mm stone in the proximal left ureter at the ureteropelvic junction with moderate left hydronephrosis and minimal haziness of the perinephric renal fat. In addition, there is a cluster of stones in the lower pole of the left kidney which measures 17 by 18 mm. Other smaller stones are present in the lower pole measuring up to 8 mm. Unremarkable appendix. No intestinal obstruction or free air. No pelvic mass or abnormal fluid collection. There is some irregular density noted in the base of the urinary bladder. This is nonspecific and could be related to some inflammatory or infectious material or even blood. Postsurgical changes are present involving the anterior abdominal wall. There are mild osteoarthritic changes of the hips. A small benign cortical defect is present in the right femoral neck at 7 mm. IMPRESSION: 1. 18 mm left ureteropelvic junction stone with moderate left-sided hydronephrosis and left nephrolithiasis. 2. Small amount of debris within the urinary bladder which could be due to infectious or inflammatory debris or blood 3. Indeterminate 9 mm hypodensity of the caudate lobe of the liver which may be better evaluated with CT or MRI without and with contrast with hemangioma protocol Dictated by: Reggie Ma MD 08/06/2019 16:08 Electronically signed by Reggie Ma MD in [facility] 08/06/2019 16:08
[2019-08-06 14:35] LABS: Microscopic, Urine URINE MICROSCOPIC (MICROSCOPIC)
[2019-08-06 14:37] LABS: Basophils # 0.1 K/mm3 (0-0.2); Basophils % 0.6 % (0.1-2.0); Eosinophils # 0.3 K/mm3 (0.0-0.4); Eosinophils % 3.7 % (0.1-12.0); Hematocrit 38.2 % (37.0-47.0); Hemoglobin 12.6 g/dL (12.2-16.2); Lymphocytes # 2.4 K/mm3 (0.7-4.5); Lymphocytes % 30.6 % (10-50); Mean Corpuscular HGB Conc 32.9 g/dL (31.8-35.4); Mean Corpuscular Hemoglobin 27.3 pg (27.0-31.2); Mean Corpuscular Volume 83.1 fl (81-99); Mean Platelet Volume 7.4 fl (7.4-10.4); Monocytes # 0.5 K/mm3 (0.1-1.0); Monocytes % 6.1 % (1.7-9.3); Neutrophils # 4.5 K/mm3 (1.8-7.8); Neutrophils % 58.9 % (37.0-80.0); Platelet Count 293 K/mm3 (142-424); Red Cell Distribution Width 14.7 % (11.5-17.5); White Blood Count 7.7 K/mm3 (4.8-10.8)
[2019-08-06 14:46] LABS: Appearance,Urine CLEAR (Clear); Blood, Urine 3+ (Negative); Color,Urine YELLOW (Yellow); Glucose,Urine (UA) Negative (Negative); Ketones,Urine Negative (Negative); Leukocyte Esterase,Urine TRACE (Negative); Nitrate,Urine POSITIVE (Negative); PH,Urine 6.5 (5.0-8.5); Protein,Urine 3+ (Negative); Specific Gravity, Urine 1.025 (1.005-1.030); Urobilinogen,Urine 0.2 EU/dl (0.2)
[2019-08-06 14:47] LABS: Bilirubin,Urine Negative (Negative)
[2019-08-06 14:48] LABS: Anion Gap 13.1 mEq/L (5-15); Blood Urea Nitrogen 20 mg/dl (7-17); Calcium 9.7 mg/dl (8.4-10.2); Carbon Dioxide 25 mmol/L (22.0-30.0); Chloride 101 mmol/L (98-107); Creatinine Clearance Estimated 2 mL/min (50-200); Estimated Glomerular Filt Rate 50 ml/min (>60); GFR (African American) 60 ML/MIN (>60); Glucose 101 mg/dl (74-100); Potassium 4.1 mmoL/L (3.5-5.1); Sodium 135 mmol/L (136-145)
--- NOTE | 2019-08-06 14:48 | HMH.EDGENADL ---
ED Disposition Clinical Impression: Ureteral calculus UTI (urinary tract infection) Qualifiers: Urinary tract infection type: site unspecified Hematuria presence: with hematuria Qualified Code(s): N39.0 - Urinary tract infection, site not specified Disposition: Home, Self-Care Condition on Discharge: Good Instructions: DI for Kidney Stones, DI for Urinary Tract Infection (UTI) Additional Instructions: Drink plenty of fluids this evening. Do not eat or drink after midnight. See Dr. Chavez in his office tomorrow morning here at the hospital first floor at 10 AM. Additional instructions for KIDNEY STONE (URETERAL CALCULUS): Return immediately if you develop a fever or have uncontrollable vomiting or uncontrollable pain. Referrals: Grant Chavez MD [Staff Physician] - - Critical Care Critical Care Time: No Attestation: On 08/06/19, the high probability of a clinically significant, sudden or life threatening deterioration of the following system(s) required my full and direct attention, intervention and personal management. The time I documented below is in addition to time spent performing reported procedures but includes the following listed in this critical care notation. Medical Decision Making - Yg Inquiry Pt receiving controlled substance: No Vital Signs: 08/06/19 14:13 Pulse Rate [Radial] 70 Respiratory Rate 17 Blood Pressure [Right Arm] 127/73 Blood Pressure Mean [Right Arm] 91 Blood Pressure Source [Right Arm] Automatic Cuff Blood Pressure Position [Right Arm] Sitting 02 Sat by Pulse Oximetry 99 Oxygen Delivery Method Room Air - Lab Data Lab Results 08/06/19 14:25: Urine Color Yellow, Urine Appearance Clear, Urine pH 6.5, Ur Specific [place] 1.025, Urine Protein 3+, Urine Glucose (UA) Negative, Urine Ketones Negative, Urine Blood 3+, Urine Nitrate Positive, Urine Bilirubin Negative, Urine Urobilinogen 0.2, Ur Leukocyte Esterase Trace, Urine RBC Tntc, Urine WBC 20-50, Ur Squamous Epith Cells 5-10, Urine Bacteria 3+, Urine Mucus 1+ 08/06/19 14:25: WBC 7.7, RBC 4.60, Hgb 12.6, Hct 38.2, MCV 83.1, MCH 27.3, MCHC 32.9, RDW 14.7, Plt Count 293, MPV 7.4, Neut % (Auto) 58.9, Lymph % (Auto) 30.6, Dent % (Auto) 6.1, Eos % (Auto) 3.7, Baso % (Auto) 0.6, Neut # (Auto) 4.5, Lymph # (Auto) 2.4, Dent # (Auto) 0.5, Eos # (Auto) 0.3, Baso # (Auto) 0.1 08/06/19 14:25: Sodium 135 L, Potassium 4.1, Chloride 101, Carbon Dioxide 25, Anion Gap 13.1, BUN 20 H, Creatinine 1.10 H, Estimated Creat Clear 2, Estimated GFR 50 L, Est GFR ( Amer) 60, Glucose 101 H, Calcium 9.7 Result diagrams: 08/06/19 14:25 08/06/19 14:25 Orders (Tests/Meds): ED MEDICATIONS Generic Name Dose Route Start Last Admin Trade Name Freq PRN Reason Stop Dose Admin Ceftriaxone Sodium 1 gm/ 50 mls @ 100 mls/hr 08/06/19 16:29 08/06/19 16:33 Sodium Chloride IV 08/06/19 16:58 100 mls/hr ONCE ONE Administration Protocol ORDERS Category Date Time Status Urine Culture Stat Micro 08/06/19 14:25 Received - CT Data CT Scan: Abdomen, Pelvis Time Received: 16:[address] Reviewed: Yes: I have viewed the radiologist's interpretation Findings Narrative: PROCEDURE: CT ABDOMEN PELVIS WO CON CLINICAL INDICATION: HEMATURIA Hematuria, left flank pain COMPARISON: No exams were available for comparison TECHNIQUE: Axial images obtained with sagittal and coronal reformats. All CT scans at the facility use one or more dose reduction, viz: automated exposure control, ma/kV adjustment per patient size (including targeted exams where dose is matched to indication, i.e. head), or iterative reconstruction technique. FINDINGS: LOWER THORAX: Pacemaker device is present. Calcified granuloma is present in the left lung base. ABDOMEN & PELVIS: There is a nonspecific 9 mm hypodensity in the caudate lobe of the liver. There is mild fatty liver infiltration. The spleen, adrenal glands, pancreas, gallbladd
[2019-08-06 14:52] LABS: Bacteria,Urine 3+ /lpf; Mucus,Urine 1+ /lpf; RBC,Urine TNTC #/hpf (0-3); WBC,Urine 20-50 #/hpf (0-3)
--- NOTE | 2019-08-06 15:26 | PC.NURSE ---
PT GOING TO CT VIA W/C
[2019-08-06 17:01] VITALS: BP 124/87; PULSE 87; RESP 20; TEMP 36.8; O2SAT 98
== END 2019-08-06 17:03 | disposition home or self-care (01) ==
PROVIDERS: Emergency Provider Emergency Medicine; PCP Nurse Practitioner Family
DX: N20.1 Calculus of ureter (principal); N30.01 Acute cystitis with hematuria; E11.9 Type 2 diabetes mellitus without complications; I10 Essential (primary) hypertension; E78.5 Hyperlipidemia, unspecified; Z95.0 Presence of cardiac pacemaker
CPT/HCPCS: 74176; 80048; 81001; 85025; 87086; 96365; 96367; 99283

== ENCOUNTER 2019-08-07 11:25 | Day surgery (SDC) | payer MEDICARE, SELFPAY ==
[2019-08-07] VITALS (10 sets, daily range): BP systolic 117–139; BP diastolic 66–77; PULSE 70–81; RESP 12–18; TEMP 36.2–36.5; O2SAT 92–97
[2019-08-07 12:35] LABS: POC Glucose,Bedside 126 (70-110)
--- NOTE | 2019-08-07 13:08 | HMH.ANESCL ---
[facility] Anesthesia Checklist - Structural Data Admitted From: Home Planned Operative Procedure/s: cysto Consent for Planned Operative Procedure(s) Verified: Yes - Additional verifications Anesthesia Reactions: No Hx Blood Transfusions: No Blood Transfusion Reaction: No - Airway Assessment C-Spine Mobility Assessed: Yes TMJ Mobility Assessed: Yes Dentition: Edentulous - Neurological Assessment Level of Consciousness: Awake, Alert, Appropriate - Anesthesia Plan Anesthesia Risk discussed: Yes Anesthesia Plan: Verified ASA Class: II Anesthesia Type: General [facility] History I have reviewed the patient's past medical history: Yes Medical History: Reports:: Diabetes Mellitus Type 2, Hyperlipidemia, Hypertension, Internal Pacemaker Denies:: Cancer, Diabetes Mellitus Type 1, MRSA, Seizures *Have you ever received a pneumonia vaccine?: No *Have you received a flu vaccine this season?: Yes Other Medical History: Reports: Hypothyroidism, Other. Denies: Blood Transfusion Reaction Anesthesia experience/problems:: none Other Surgeries: Yes: Cardiac Catheterization, Cardiac Surgery, Colonoscopy, , Hernia Repair, Pacemaker, Tubal Ligation, Other (PPM battery change 2017) Amputation: No Fractures: No - *Social History Educational Level: Completed High School Smoking Status: Former smoker Alcohol Intake: never Alcohol Intake Frequency:: other Substance Use Type: denies use *Occupational Status:: retired Housing: house Household Members: spouse *Travel in the last 8 weeks: None Family Hx:: No significant family history
--- NOTE | 2019-08-07 13:50 | P.PN_ITS ---
[facility] Anesthesia Record Part I Intake, IV Amount: 1,000 Estimated blood loss (mL): 0 Urine output (mL): 300 Blood Pressure: 125/75 SaO2: 96 Pulse Rate: 75 Respiratory Rate: 12 Temperature: 97.1 F Patient is:: Awake, Stable
--- NOTE | 2019-08-07 13:51 | FL_ITS ---
PROCEDURE: FL URETHROCYSTOGRAM RETRO CLINICAL INDICATION: LONG PLACEMENT Stent placement COMPARISON: CT ABDOMEN PELVIS WO CON from 08/06/2019 FINDINGS: Fluoroscopy time: 5.2 seconds There are 2 images submitted with the C-arm showing a ureteral stent having been placed. The proximal aspect is in the region of the renal pelvis and distal aspect in the region the urinary bladder. There is moderate left hydronephrosis. IMPRESSION: Interval left ureteral stent placement with hydronephrosis of the left kidney Dictated by: Reggie Ma MD 08/07/2019 14:53 Electronically signed by Reggie Ma MD in [place] 08/07/2019 14:53
--- NOTE | 2019-08-07 14:07 | P.OP_ITS ---
Date of procedure: 08/07/19 Pre-op Diagnosis:: 16mm proximal left ureteral stone with obstruction Post-op Diagnosis:: Same Procedure performed:: Cystoscopy with ureteral catheterization left retrograde pyelogram, left ureteral stent placement Surgeon:: Grant Chavez MD AGRICULTURAL EDUCATION INSTRUCTOR:: Isaiah Cage Anesthesia: GETA Estimated blood loss (mL): 0 Clinical Note:: Patient is a 63-year-old white female with a large proximal ureteral stone who presents for left ureteral stent placement Operative findings:: Large proximal ureteral stone with difficulty manipulating his guidewire by the stone into the left renal pelvis. Stone was not well calcified. Operative note:: Patient taken to the operating room after informed consent was obtained. Placed on the operating table in the supine position and general anesthesia administered. Preoperative antibiotics and sequential compression devices were placed. He was then placed into the dorsal lithotomy position and prepped and draped in the standard surgical fashion. The 22 Valerio passed into the urethral meatus and into the bladder. The bladder was examined in a systematic fashion and some small blood clots were noted no evidence of mucosal abnormalities, stones, diverticula or trabeculation. The ureteral orifices in their normal anatomic position. Urine was noted from the right ureteral orifice but not from the left. A 5 [place] ureteral catheter passed into the left ureteral orifice and up to the proximal ureter where there was obstruction met. The stone was not well calcified on fluoroscopy. A 0.035 sensor guidewire then passed through the ureteral catheter and after some manipulation we were able to manipulate the wire into the left renal pelvis with resistance. The ureteral catheter was passed this proximally as it would go and the wire removed and a retrograde pyelogram was performed with contrast injected in a retrograde fa shion. We were in the proper collecting system. There is no evidence of any extravasation. The sensor guidewire was passed back through the ureteral catheter and the ureteral catheter was removed. A 4.8 x 24 Vietnamese stent was then passed over the guidewire and under fluoroscopy it passed into the left renal pelvis. The wire and string were removed and fluoroscopy revealed a good curl proximally and distally. The bladder drained and the scope removed. Urojet placed into the urethra. The patient tolerated procedure well there are no complications. She was discharged to the recovery in stable condition. Condition: stable Disposition: PACU Specimens:: Urine culture was obtained after stent placement Complications:: None
--- NOTE | 2019-08-07 14:10 | SUR.PHASEII ---
Zofran 4mg IV given per Sandi Warren RN while still in PACU for C/O nausea.
--- NOTE | 2019-08-07 14:26 | PC.NURSE ---
4mg zofran given at 1410 for nausea.
--- NOTE | 2019-08-07 15:48 | P.PN_ITS ---
[facility] Anesthesia Record Part II Discharge Time: 14:15 Destination: Medical Surgical Department PACU nurse assessment reviewed?: Yes Patient Condition:: Good Anesthesia Complications:: None Swallowing reflex intact?: Yes Cyanosis?: No Blood Pressure: 120/69 Pulse Rate: 70 Temperature: 97.7 F Mental Status: Alert & Oriented Pain level:: 0 Nausea and/or vomitting:: None Intake, IV Amount: 0
== END 2019-08-07 14:53 | disposition home or self-care (01) ==
PROVIDERS: PCP Nurse Practitioner Family; Visit Provider Urology
PROC: 0TJ98ZZ Inspection of Ureter, Via Natural or Artificial Opening Endoscopic (ICD-10-PCS; CPT 52351; principal; 2019-08-07 12:30)
DX: N21.1 Calculus in urethra; N13.5 Crossing vessel and stricture of ureter without hydronephrosis; Z79.82 Long term (current) use of aspirin; Z79.84 Long term (current) use of oral hypoglycemic drugs; Z79.899 Other long term (current) drug therapy; E11.9 Type 2 diabetes mellitus without complications; I10 Essential (primary) hypertension; E78.5 Hyperlipidemia, unspecified; Z95.0 Presence of cardiac pacemaker; E03.9 Hypothyroidism, unspecified; G47.33 Obstructive sleep apnea (adult) (pediatric); Z87.891 Personal history of nicotine dependence
CPT/HCPCS: 52351; 74450; 82962; 87086; 96374; C1769; C2617; J2405

== ENCOUNTER → 2019-08-13 14:11 | Outpatient (CLI) | payer MEDICARE, SELFPAY ==
--- NOTE | 2019-08-13 14:15 | XR_ITS ---
PROCEDURE: XR KUB CLINICAL INDICATION: RENAL STONE COMPARISON: CT ABDOMEN PELVIS WO CON from 08/06/2019 FL URETHROCYSTOGRAM RETRO from 08/07/2019 FINDINGS: A left ureteral stent present with the proximal aspect curled in the region of the renal pelvis and distal aspect region of the urinary bladder. No obvious ureteral stone. There are multiple abdominal wall tacks, osteoarthritic changes of the hips, and degenerative changes of the lumbar spine. IMPRESSION: Left ureteral stent in place Dictated by: Reggie Ma MD 08/13/2019 15:05 Electronically signed by Reggie Ma MD in [place] 08/13/2019 15:05
== END ==
PROVIDERS: PCP Nurse Practitioner Family; Visit Provider Urology
DX: N20.0 Calculus of kidney (principal)
CPT/HCPCS: 74018

== ENCOUNTER → 2019-10-08 07:37 | Outpatient (CLI) | payer MEDICARE, SELFPAY | PROVIDERS: Visit Provider Urology | DX: E11.8 Type 2 diabetes mellitus with unspecified complications (principal) ==

== ENCOUNTER 2019-10-09 07:24 | Day surgery (SDC) | payer MEDICARE, SELFPAY ==
[2019-10-07 11:36] VITALS: BMI 38.4
[2019-10-08 08:36] LABS: Coronavirus 19 IgG Antibody Negative (Negative); Coronavirus 19 IgM Antibody Negative (Negative)
[2019-10-09] VITALS (11 sets, daily range): BP systolic 99–154; BP diastolic 56–76; PULSE 66–74; RESP 12–18; TEMP 36.1–36.7; O2SAT 95–97
[2019-10-09 07:55] LABS: POC Glucose,Bedside 156 (70-110)
--- NOTE | 2019-10-09 08:00 | P.PN_ITS ---
[facility] Anesthesia Checklist - Structural Data Admitted From: Home Planned Operative Procedure/s: lithotripsy Consent for Planned Operative Procedure(s) Verified: Yes - Additional verifications Anesthesia Reactions: No Hx Blood Transfusions: No Blood Transfusion Reaction: No - Airway Assessment C-Spine Mobility Assessed: Yes TMJ Mobility Assessed: Yes Dentition: Dentures-good fit - Neurological Assessment Level of Consciousness: Awake, Alert, Appropriate - Anesthesia Plan Anesthesia Risk discussed: Yes Anesthesia Plan: Verified ASA Class: III Anesthesia Type: General [facility] History I have reviewed the patient's past medical history: Yes Medical History: Reports:: Diabetes Mellitus Type 2, Hyperlipidemia, Hypertension, Internal Pacemaker, Kidney Stones Denies:: Cancer, Diabetes Mellitus Type 1, MRSA, Seizures *Have you ever received a pneumonia vaccine?: Yes *Have you received a flu vaccine this season?: Yes Other Medical History: Reports: Hypothyroidism, Other. Denies: Blood Transfusion Reaction Anesthesia experience/problems:: none Other Surgeries: Yes: Cardiac Catheterization, Cardiac Surgery, Colonoscopy, C- section, Hernia Repair, Pacemaker, Tubal Ligation, Other (PPM battery change 2017) Amputation: No Fractures: No - *Social History Smoking Status: Former smoker Alcohol Intake: never Alcohol Intake Frequency:: other Substance Use Type: denies use *Occupational Status:: retired Housing: house Household Members: spouse *Travel in the last 8 weeks: None Family Hx:: No significant family history
[2019-10-09 08:04] LABS: Basophils % 0.8 % (0.1-2.0); Eosinophils # 0.3 K/mm3 (0.0-0.4); Eosinophils % 5.3 % (0.1-12.0); Hematocrit 37.3 % (37.0-47.0); Hemoglobin 13.1 g/dL (12.2-16.2); Lymphocytes # 1.4 K/mm3 (0.7-4.5); Lymphocytes % 25.1 % (10-50); Mean Corpuscular HGB Conc 35.1 g/dL (31.8-35.4); Mean Corpuscular Hemoglobin 29.3 pg (27.0-31.2); Mean Corpuscular Volume 83.4 fl (81-99); Mean Platelet Volume 7.3 fl (7.4-10.4); Monocytes # 0.3 K/mm3 (0.1-1.0); Monocytes % 4.9 % (1.7-9.3); Neutrophils # 3.5 K/mm3 (1.8-7.8); Platelet Count 223 K/mm3 (142-424); Red Blood Count 4.47 M/mm3 (4.20-5.40); Red Cell Distribution Width 15.1 % (11.5-17.5); White Blood Count 5.5 K/mm3 (4.8-10.8)
[2019-10-09 08:05] LABS: Chloride 105 mmol/L (98-107); Potassium 4.5 mmoL/L (3.5-5.1); Sodium 138 mmol/L (136-145)
[2019-10-09 08:08] LABS: Anion Gap 12.5 mEq/L (5-15); Blood Urea Nitrogen 15 mg/dl (7-17); Carbon Dioxide 25 mmol/L (22.0-30.0); Creatinine Clearance Estimated 77 mL/min (50-200); Estimated Glomerular Filt Rate 45 ml/min (>60); GFR (African American) 55 ML/MIN (>60); Glucose 160 mg/dl (74-100)
--- NOTE | 2019-10-09 10:02 | P.PN_ITS ---
[facility] Anesthesia Record Part I Intake, IV Amount: 500 Estimated blood loss (mL): 0 Urine output (mL): 0 Blood Pressure: 117/72 SaO2: 97 Pulse Rate: 70 Respiratory Rate: 12 Temperature: 97.7 F Patient is:: Awake Stable to PACU at:: 10:00
[2019-10-09 10:51] LABS: POC Glucose,Bedside 132 (70-110)
--- NOTE | 2019-10-09 12:59 | HMH.OPNOTE ---
Date of procedure: 10/09/19 Pre-op Diagnosis:: Left nephrolithiasis Post-op Diagnosis:: Same Procedure performed:: Left ESWL Surgeon:: Grant Chavez MD RESIDENTIAL LEASING MANAGER:: Isaiah Cage Anesthesia: GETA Estimated blood loss (mL): 0 Clinical Note:: 63-year-old white female with recent left renal colic noted to have a 1.7 cm stone in the left proximal ureter as well as a 1.7 cm stone in the left lower pole. She is underwent previous stone manipulation and left ureteral stent placement and returns today for left ESWL. Operative findings:: The previously noted 1.7 cm left proximal ureteral stone is now on the left lower pole along with the other 1.7 cm stone. Stones are hazy due to their likely uric acid content that were visible in order to treat Operative note:: Patient taken to the operating room after informed consent was obtained. She was placed on the operating table in the supine position and general anesthesia administered. Antibiotics and sequential compression devices placed. She was then positioned so that F to the lithotripter was focused onto the left renal stones which were both in the left lower pole. The stones were hazy due to their likely uric acid contents. A left ureteral stent was in good position. 3000 shockwaves delivered to the stones in the left lower pole without complication. Patient tolerated procedure well and there were no complications. Condition: stable Disposition: PACU Specimens:: None Complications:: None
--- NOTE | 2019-10-09 13:29 | P.PN_ITS ---
[facility] Anesthesia Record Part II Discharge Time: 10:30 Destination: [facility] PACU nurse assessment reviewed?: Yes Patient Condition:: Good Anesthesia Complications:: None Swallowing reflex intact?: Yes Cyanosis?: No Blood Pressure: 101/70 Pulse Rate: 70 Temperature: 97 F Mental Status: Alert & Oriented Pain level:: 0 Nausea and/or vomitting:: None Intake, IV Amount: 1,000
--- NOTE | 2019-10-09 14:14 | PC.NURSE ---
1037-pt transported to post op via stretcher w/all rails up and left in care of ANNETTE Bui with bed locked in lowest position, detailed report given at bedside, vss, pt stable
== END 2019-10-09 11:08 | disposition home or self-care (01) ==
LOC: OR 07:26
PROVIDERS: PCP Nurse Practitioner Family; Visit Provider Urology
PROC: (CPT 50590; principal; 2019-10-09 09:00)
DX: N20.2 Calculus of kidney with calculus of ureter (principal); E11.9 Type 2 diabetes mellitus without complications; I10 Essential (primary) hypertension; E78.5 Hyperlipidemia, unspecified; E03.9 Hypothyroidism, unspecified; Z95.0 Presence of cardiac pacemaker; Z87.891 Personal history of nicotine dependence; Z79.82 Long term (current) use of aspirin; Z79.84 Long term (current) use of oral hypoglycemic drugs; Z79.899 Other long term (current) drug therapy
CPT/HCPCS: 50590; 80048; 82962; 85025; 86328; 96374; J2405

== ENCOUNTER → 2019-10-16 06:56 | Outpatient (CLI) | payer MEDICARE, SELFPAY ==
--- NOTE | 2019-10-16 07:00 | XR_ITS ---
PROCEDURE: XR KUB CLINICAL INDICATION: kidney stones COMPARISON: CT ABDOMEN PELVIS WO CON from 08/06/2019 FINDINGS: The bowel gas pattern is unremarkable. There is a left ureteral stent extending from the renal pelvis to the bladder floor. The previously noted 17 mm calculus sitting at the UP junction on the CT scan 08/06/2019 is not seen. There is a small stone fragment adjacent to the stent near the expected UV junction location presumably secondary lithotripsy of the UPjunction stone. Faint vascular calcifications are seen on either side of the pelvis.. IMPRESSION: Residual stone fragment distal left ureter adjacent to the stent measuring approximately 7 mm likely secondary to previous lithotripsy Dictated by: Dr. Augustine Bryant MD 10/16/2019 09:[address] Augustine Bryant MD in [place] 10/16/2019 09:11
== END ==
PROVIDERS: PCP Nurse Practitioner Family; Visit Provider Urology
DX: N20.0 Calculus of kidney (principal)
CPT/HCPCS: 74018

== ENCOUNTER → 2019-10-26 14:46 | Outpatient (CLI) | payer MEDICARE, SELFPAY ==
--- NOTE | 2019-10-26 14:46 | CT_ITS ---
PROCEDURE: CT ABDOMEN PELVIS WO CON CLINICAL INDICATION: ureteral stone Left flank pain COMPARISON: CT ABDOMEN PELVIS WO CON from 08/06/2019 TECHNIQUE: Axial images obtained with sagittal and coronal reformats. All CT scans at the facility use one or more dose reduction, viz: automated exposure control, ma/kV adjustment per patient size (including targeted exams where dose is matched to indication, i.e. head), or iterative reconstruction technique. FINDINGS: LOWER THORAX: Artifact is present ABDOMEN & PELVIS: From cardiac pacemaker diffuse fatty liver. No change in the mine mm hypodensity in the caudate lobe. Gallbladder is distended with at least 1 small gallstone. The spleen and stomach have an unremarkable appearance. There is a 12 mm hypodensity in the right kidney laterally nonspecific. There is a left ureteral stent in place with the proximal renal portion curled in the region of the renal pelvis. The distal aspect of the stent is curled in the urinary bladder. There is a 12 mm ureteral stone adjacent to the stent at the region of the pelvic inlet. There is only minimal ectasia of the left renal pelvis. There is an additional stone or stone fragments in the lower pole of the left kidney measuring 8 mm. No urinary calculi evident within the bladder. No evidence of appendicitis. There is colonic diverticulosis but no evidence of diverticulitis. No intestinal obstruction or free air. IMPRESSION: Left ureteral stent in place with a 12 mm stone in the junction of the mid to distal 3rd of the left ureter at the pelvic inlet. There is only minimal ectasia of the left renal collecting system and there is a stone in the lower pole of the left kidney. Cholelithiasis. Other nonacute findings as described above. Dictated by: Reggie Ma MD 10/27/2019 11:32 Electronically signed by Reggie Ma MD in [place] 10/27/2019 11:32
== END ==
PROVIDERS: PCP Nurse Practitioner Family; Visit Provider Urology
DX: N20.1 Calculus of ureter (principal)
CPT/HCPCS: 74176

== ENCOUNTER → 2019-11-19 08:17 | Outpatient (CLI) | payer MEDICARE, SELFPAY ==
[2019-11-19 10:42] LABS: Coronavirus 19 IgG Antibody Negative (Negative); Coronavirus 19 IgM Antibody Negative (Negative)
== END ==
PROVIDERS: Visit Provider Urology
DX: N20.1 Calculus of ureter (principal)
CPT/HCPCS: 36415; 86328

== ENCOUNTER 2019-11-20 09:01 | Day surgery (SDC) | payer MEDICARE, SELFPAY ==
[2019-11-18 11:01] VITALS: BMI 37.1
[2019-11-20] VITALS (10 sets, daily range): BP systolic 114–133; BP diastolic 70–84; PULSE 69–71; RESP 12–18; TEMP 36.2–36.8; O2SAT 92–98
[2019-11-20 09:42] LABS: POC Glucose,Bedside 138 (70-110)
[2019-11-20 09:42] LABS: Basophils % 0.6 % (0.1-2.0); Eosinophils # 0.3 K/mm3 (0.0-0.4); Eosinophils % 4.3 % (0.1-12.0); Hematocrit 36.6 % (37.0-47.0); Hemoglobin 12.3 g/dL (12.2-16.2); Lymphocytes # 1.4 K/mm3 (0.7-4.5); Lymphocytes % 25.1 % (10-50); Mean Corpuscular HGB Conc 33.5 g/dL (31.8-35.4); Mean Corpuscular Volume 83.5 fl (81-99); Monocytes # 0.3 K/mm3 (0.1-1.0); Monocytes % 5.4 % (1.7-9.3); Neutrophils # 3.7 K/mm3 (1.8-7.8); Neutrophils % 64.5 % (37.0-80.0); Platelet Count 211 K/mm3 (142-424); Red Blood Count 4.39 M/mm3 (4.20-5.40); Red Cell Distribution Width 15.1 % (11.5-17.5); White Blood Count 5.7 K/mm3 (4.8-10.8)
[2019-11-20 09:46] LABS: Chloride 105 mmol/L (98-107); Sodium 141 mmol/L (136-145)
[2019-11-20 09:47] LABS: Potassium 4.1 mmoL/L (3.5-5.1)
[2019-11-20 09:49] LABS: Blood Urea Nitrogen 18 mg/dl (7-17); Creatinine Clearance Estimated 84 mL/min (50-200); Estimated Glomerular Filt Rate 50 ml/min (>60); GFR (African American) 60 ML/MIN (>60)
[2019-11-20 09:50] LABS: Anion Gap 13.1 mEq/L (5-15); Calcium 8.8 mg/dl (8.4-10.2); Carbon Dioxide 27 mmol/L (22.0-30.0); Glucose 146 mg/dl (74-100)
--- NOTE | 2019-11-20 11:30 | P.PN_ITS ---
[facility] Anesthesia Checklist - Structural Data Admitted From: Home Planned Operative Procedure/s: ureteroscopy Consent for Planned Operative Procedure(s) Verified: Yes - Additional verifications Anesthesia Reactions: No Hx Blood Transfusions: No Blood Transfusion Reaction: No - Airway Assessment C-Spine Mobility Assessed: Yes TMJ Mobility Assessed: Yes Dentition: Dentures-good fit - Neurological Assessment Level of Consciousness: Awake, Alert, Appropriate - Anesthesia Plan Anesthesia Risk discussed: Yes Anesthesia Plan: Verified ASA Class: III Anesthesia Type: General [facility] History I have reviewed the patient's past medical history: Yes Medical History: Reports:: Coronary Artery Disease, Diabetes Mellitus Type 2, Hyperlipidemia, Hypertension, Internal Pacemaker, Kidney Stones Denies:: Cancer, Diabetes Mellitus Type 1, MRSA, Seizures *Have you ever received a pneumonia vaccine?: No *Have you received a flu vaccine this season?: Yes Other Medical History: Reports: Hypothyroidism, Other. Denies: Blood Transfusion Reaction Anesthesia experience/problems:: none Other Surgeries: Yes: No Previous Surgery, Cardiac Catheterization, Cardiac Surg nathaniel, Colonoscopy, , Hernia Repair, Pacemaker, Tubal Ligation, Other (PPM battery change 2017) Amputation: No Fractures: No - *Social History Last grade of school completed: High school graduate Smoking Status: Former smoker Alcohol Intake: never Alcohol Intake Frequency:: other Substance Use Type: denies use *Occupational Status:: retired Housing: house Household Members: spouse *Travel in the last 8 weeks: None Family Hx:: No significant family history
--- NOTE | 2019-11-20 12:11 | P.PN_ITS ---
[facility] Anesthesia Record Part I Intake, IV Amount: 800 Estimated blood loss (mL): 0 Urine output (mL): 0 Blood Pressure: 133/84 SaO2: 95 Pulse Rate: 70 Respiratory Rate: 12 Temperature: 98.2 F Patient is:: Awake, Stable Stable to PACU at:: 12:10
--- NOTE | 2019-11-20 12:16 | XR_ITS ---
PROCEDURE: XR ABDOMEN MIN 2V CLINICAL INDICATION: STONE REMOVAL AND STENT PLACEMENT COMPARISON: No exams were available for comparison FINDINGS: Fluoroscopy time: 44 seconds 2 images are submitted with the C-arm showing a left ureteral stent in place with the proximal aspect overlying the left upper quadrant and distal aspect in the region of the lower pelvis. Other findings:None. IMPRESSION: Status post left ureteral stent placement Dictated by: Reggie Ma MD 11/20/2019 14:15 Electronically signed by Reggie Ma MD in [place] 11/20/2019 14:15
--- NOTE | 2019-11-20 13:54 | P.OP_ITS ---
Date of procedure: 11/20/19 Pre-op Diagnosis:: Left distal ureteral stone Post-op Diagnosis:: Same Procedure performed:: Left ureteroscopy laser lithotripsy of the distal ureteral stone with stone extraction. Left stent removal and replacement Surgeon:: Grant Chavez MD LEGAL SECRETARY RECEPTIONIST:: Isaiah Cage Anesthesia: GETA Estimated blood loss (mL): 0 Clinical Note:: Patient is a 63-year-old white female with a large stone burden in the left lower pole status post ESWL with a 1 cm fragment in the left distal ureter. She has an indwelling stent present that was placed prior to the ESWL. There are also some stone fragments in the left lower pole. She presents today for stone extraction. Operative findings:: 1 cm stone noted in the distal left ureter. Operative note:: Patient taken to the operating room after informed consent was obtained. Placed on the operating table in the supine position and general anesthesia administered. Preoperative antibiotics and sequential compression devices placed. She was then placed into the dorsal lithotomy position prepped draped in the standard surgical fashion. 22 Valerio passed into the urethra and into the bladder without difficulty. Left ureteral stent was noted and graspers were used to remove the stent without difficulty. We then passed a 0.035 guidewire into the left ureter and it passed into the renal pelvis without difficulty. It is notable that the patient's stones are not well calcified and difficult to see on fluoroscopy. The cystoscope removed and our semirigid ureteroscope then passed into the bladder and into the left ureter and up to the level of the stone. We attempted to remove it with the triceps stone basket but was too large and cannot get a good purchase on it. We then used the laser to fragment the stone into small fragments. We used 2.4 [place] nitinol stone basket to remove all stone fragments. At the conclusion of the stone extraction the cystoscope was replaced and a 6 x 24 [place] stent was replaced without difficulty. A good curl was noted proximally and distally. String was left on for later removal. Patient tolerated procedure well discharged to recovery in stable condition. Condition: stable Disposition: PACU Specimens:: Specimens were not sent to the lab as I have previously sent some stones that she passed for analysis. Complications:: None
== END 2019-11-20 13:28 | disposition home or self-care (01) ==
LOC: OR 09:03
PROVIDERS: PCP Nurse Practitioner Family; Visit Provider Urology
PROC: (CPT 52352; principal; 2019-11-20 10:45)
DX: N20.1 Calculus of ureter (principal); Z87.442 Personal history of urinary calculi; I25.10 Atherosclerotic heart disease of native coronary artery without angina pectoris; E11.9 Type 2 diabetes mellitus without complications; E78.5 Hyperlipidemia, unspecified; I10 Essential (primary) hypertension; Z95.0 Presence of cardiac pacemaker; E03.9 Hypothyroidism, unspecified; Z87.891 Personal history of nicotine dependence; Z88.8 Allergy status to other drugs, medicaments and biological substances; Z79.82 Long term (current) use of aspirin; Z79.899 Other long term (current) drug therapy
CPT/HCPCS: 52352; 52356; 74019; 76000; 80048; 82370; 82962; 85025; 96374; C2617; J2405

== ENCOUNTER → 2019-11-20 16:28 | Outpatient (CLI) | payer MEDICARE, SELFPAY ==
[2019-12-12 18:17] LABS: Specimen Type NOT PROVIDED
[2019-12-12 18:20] LABS: Photo TO FOLLOW
== END ==
PROVIDERS: Visit Provider Urology
DX: N20.0 Calculus of kidney (principal)
CPT/HCPCS: 82370

== ENCOUNTER → 2019-12-23 14:41 | Outpatient (CLI) | payer MEDICARE, SELFPAY ==
[2019-12-23 15:19] LABS: Alanine Aminotransferase 42 U/L (12-78); Albumin Level 4.5 g/dl (3.5-5.0); Albumin/Globulin Ratio 1.6 (1.1-1.8); Alkaline Phosphatase 123 U/L (38-126); Anion Gap 18.2 mEq/L (5-15); Aspartate Amino Transferase 48 U/L (14-36); Bilirubin,Total 0.5 mg/dl (0.2-1.3); Blood Urea Nitrogen 20 mg/dl (7-17); Calcium 9.6 mg/dl (8.4-10.2); Carbon Dioxide 24 mmol/L (22.0-30.0); Chloride 101 mmol/L (98-107); Chol/HDL Ratio 4.8 (1-3.5); Cholesterol 163 mg/dl (140-200); Estimated Glomerular Filt Rate 56 ml/min (>60); GFR (African American) 67 ML/MIN (>60); Globulin 2.9 g/dL (1.3-3.2); Glucose 171 mg/dl (74-100); HDL Cholesterol 34 mg/dl (40-60); Potassium 4.2 mmoL/L (3.5-5.1); Sodium 139 mmol/L (136-145); Total Protein,Serum 7.4 g/dl (6.3-8.2); Triglycerides 396 mg/dl (30-150); VLDL Cholesterol 79 mg/dL (0-40)
[2019-12-23 15:24] LABS: Microalbumin/Creatinine Ratio 26.9
[2019-12-23 15:28] LABS: Creatinine,Urine Random 23 mg/dL (Not Estab.)
[2019-12-23 15:36] LABS: T4 (Thyroxine) 10.7 ug/dl (5.53-11.0)
[2019-12-23 16:39] LABS: Hemoglobin A1C 7.6 % (4.0-6.0)
== END ==
PROVIDERS: Visit Provider Nurse Practitioner Family
DX: E11.8 Type 2 diabetes mellitus with unspecified complications (principal); E03.9 Hypothyroidism, unspecified; Z79.84 Long term (current) use of oral hypoglycemic drugs
CPT/HCPCS: 80053; 80061; 82043; 82570; 83036; 84436; 84443

== ENCOUNTER → 2020-06-24 15:24 | Outpatient (CLI) | payer MEDICARE, SELFPAY ==
[2020-06-24 16:51] LABS: Basophils % 0.7 % (0.1-2.0); Eosinophils # 0.2 K/mm3 (0.0-0.4); Eosinophils % 3.7 % (0.1-12.0); Hematocrit 41.8 % (37.0-47.0); Hemoglobin 13.4 g/dL (12.2-16.2); Lymphocytes # 1.3 K/mm3 (0.7-4.5); Lymphocytes % 25.2 % (10-50); Mean Corpuscular HGB Conc 32.1 g/dL (31.8-35.4); Mean Corpuscular Hemoglobin 27.6 pg (27.0-31.2); Mean Corpuscular Volume 85.9 fl (81-99); Mean Platelet Volume 8.3 fl (7.4-10.4); Monocytes # 0.3 K/mm3 (0.1-1.0); Monocytes % 5.4 % (1.7-9.3); Neutrophils # 3.5 K/mm3 (1.8-7.8); Neutrophils % 64.9 % (37.0-80.0); Platelet Count 272 K/mm3 (142-424); Red Blood Count 4.86 M/mm3 (4.20-5.40); Red Cell Distribution Width 15.1 % (11.5-17.5); White Blood Count 5.3 K/mm3 (4.8-10.8)
[2020-06-24 16:58] LABS: Alanine Aminotransferase 40 U/L (12-78); Albumin Level 4.3 g/dl (3.5-5.0); Albumin/Globulin Ratio 1.4 (1.1-1.8); Alkaline Phosphatase 92 U/L (38-126); Anion Gap 12.6 mEq/L (5-15); Aspartate Amino Transferase 62 U/L (14-36); Bilirubin,Total 0.7 mg/dl (0.2-1.3); Blood Urea Nitrogen 18 mg/dl (7-17); Calcium 9.7 mg/dl (8.4-10.2); Carbon Dioxide 24 mmol/L (22.0-30.0); Chloride 106 mmol/L (98-107); Chol/HDL Ratio 4.5 (1-3.5); Cholesterol 144 mg/dl (140-200); Estimated Glomerular Filt Rate 50 ml/min (>60); GFR (African American) 60 ML/MIN (>60); Glucose 153 mg/dl (74-100); HDL Cholesterol 32 mg/dl (40-60); Potassium 4.6 mmoL/L (3.5-5.1); Sodium 138 mmol/L (136-145); Total Protein,Serum 7.3 g/dl (6.3-8.2); Triglycerides 272 mg/dl (30-150); VLDL Cholesterol 54 mg/dL (0-40)
[2020-06-24 17:08] LABS: Direct LDL Cholesterol 59.13 mg/dL (100-129)
[2020-06-24 17:16] LABS: 25-OH Vitamin D, Total 47.5 ng/mL (30-100)
[2020-06-24 17:17] LABS: T4 (Thyroxine) 10.5 ug/dl (5.53-11.0)
[2020-06-24 17:30] LABS: Thyroid Stimulating Hormone 0.41 uIU/mL (0.465-4.68)
[2020-06-24 18:06] LABS: Hemoglobin A1C 7.6 % (4.0-6.0)
== END ==
PROVIDERS: Visit Provider Nurse Practitioner Family
DX: E11.8 Type 2 diabetes mellitus with unspecified complications (principal); E55.9 Vitamin D deficiency, unspecified; E66.9 Obesity, unspecified; E78.5 Hyperlipidemia, unspecified; I10 Essential (primary) hypertension; Z79.84 Long term (current) use of oral hypoglycemic drugs
CPT/HCPCS: 80053; 80061; 82306; 83036; 84436; 84443; 85025

== ENCOUNTER → 2020-07-04 09:39 | Outpatient (CLI) | payer MEDICARE, SELFPAY ==
--- NOTE | 2020-07-04 09:40 | MM_ITS ---
PROCEDURE: MM DIG SCREENING MAMM BI W/CAD Digital Breast Tomosynthesis Included CLINICAL INDICATION: breast ca screening There is no personal or family history of breast cancer. COMPARISON: [facility] MM Dig screening mamm BI w/CAD from 06/05/2018 MG MM DIG SCREENING MAMM BI W/CAD from 06/10/2019 TECHNIQUE: Standard CC and MLO images and 3D Tomosynthesis was obtained. R2 CAD reviewed. FINDINGS: Mild to moderate scattered fibroglandular densities are seen throughout both breast. There are numerous microcalcifications in each breast some of which are cutaneous. Again noted is a cardiac pacemaker overlying the axilla left breast. No new or suspicious lesion in either breast and no suspicious microcalcifications. IMPRESSION: Fibrofatty parenchyma with no suspicious lesions seen BI-RAD Category: 2 Benign Finding(s) FOLLOW-UP: 1YR 1 Year Follow-up (A letter has been sent to the patient regarding results of the study.) Dictated by: Dr. Augustine Bryant MD 07/10/2020 09:49 Dr. Augustine Bryant MD in [place] 07/10/2020 09:49
== END ==
PROVIDERS: PCP Nurse Practitioner Family; Visit Provider Nurse Practitioner Family
DX: Z12.31 Encounter for screening mammogram for malignant neoplasm of breast (principal)
CPT/HCPCS: 77063; 77067

== ENCOUNTER → 2020-09-21 14:44 | Outpatient (POV) | payer MEDICARE, SELFPAY | DX: Z00.00 Encounter for general adult medical examination without abnormal findings (principal) ==

== ENCOUNTER → 2020-11-01 07:57 | Outpatient (CLI) | payer MEDICARE, SELFPAY ==
--- NOTE | 2020-11-01 07:57 | CT_ITS ---
PROCEDURE: CT HEAD/BRAIN WO CON CLINICAL INDICATION: headache COMPARISON: No exams were available for comparison TECHNIQUE: Axial images obtained. All CT scans at the facility use one or more dose reduction, viz: automated exposure control, ma/kV adjustment per patient size (including targeted exams where dose is matched to indication, i.e. head), or iterative reconstruction technique. FINDINGS: No midline shift, mass effect, intracranial hemorrhage, hydrocephalus, or extra-axial fluid collection is evident. Senescent changes with mild prominence of the gyri and slight decreased attenuation in the periventricular region. The calvarium has an unremarkable appearance. No mastoid effusion. There is mild mucosal thickening of the ethmoid sinuses. IMPRESSION: No acute intracranial finding Dictated by: Reggie Ma MD 11/01/2020 16:22 Reggie Ma MD in [place] 11/01/2020 16:22
== END ==
PROVIDERS: PCP Nurse Practitioner Family; Visit Provider Nurse Practitioner Family
DX: G44.52 New daily persistent headache (NDPH) (principal)
CPT/HCPCS: 70450

== ENCOUNTER → 2021-06-19 13:51 | Outpatient (CLI) | payer MEDICARE, SELFPAY | PROVIDERS: Visit Provider Nurse Practitioner Family | DX: N39.0 Urinary tract infection, site not specified (principal); B95.8 Unspecified staphylococcus as the cause of diseases classified elsewhere | CPT/HCPCS: 82043; 87086; 87186 ==

== ENCOUNTER → 2021-06-19 16:00 | Outpatient (CLI) | payer MEDICARE, SELFPAY | PROVIDERS: Visit Provider Nurse Practitioner Family | DX: N39.0 Urinary tract infection, site not specified (principal) ==

== ENCOUNTER → 2021-07-06 07:38 | Outpatient (CLI) | payer MEDICARE, SELFPAY ==
--- NOTE | 2021-07-06 07:38 | MM_ITS ---
PROCEDURE INFORMATION: Exam: MG Bilateral Screening 3D Mammography Exam date and time: 07/06/2021 7:38 AM Age: 65 years old Clinical indication: Screening mammogram TECHNIQUE: Imaging protocol: Bilateral Screening tomosynthesis and 2D mammography including computer-aided detection (CAD) when performed. COMPARISON: 1. MG MM DIG SCREENING MAMM BI W/CAD 07/04/2020 9:59 AM 2. MG MM DIG SCREENING MAMM BI W/CAD 06/10/2019 8:04 AM 3. MG SCBI MM Dig screening mamm BI w/CAD 06/05/2018 9:47 AM FINDINGS: MAMMOGRAPHY: Breast composition: There are scattered areas of fibroglandular density. Mass: None. Architectural distortion: No new or suspicious architectural distortion. Calcifications: Stable benign-appearing calcifications are present. No new or suspicious cluster of microcalcifications have developed. Asymmetric density: No new or suspicious asymmetric density is present Skin thickening: None. Axillary adenopathy: None. IMPRESSION: No mammographic evidence of malignancy. Recommend annual screening mammography unless otherwise clinically indicated. ASSESSMENT: BI-RADS category 2: Benign
== END ==
PROVIDERS: PCP Nurse Practitioner Family; Visit Provider Nurse Practitioner Family
DX: Z12.31 Encounter for screening mammogram for malignant neoplasm of breast (principal)
CPT/HCPCS: 77063; 77067

== ENCOUNTER → 2021-08-04 06:59 | Outpatient (CLI) | payer MEDICARE, SELFPAY ==
[2021-08-04 07:09] LABS: Microscopic, Urine URINE MICROSCOPIC (MICROSCOPIC)
[2021-08-04 07:28] LABS: Basophils # 0.1 K/mm3 (0-0.2); Basophils % 0.9 % (0.1-2.0); Eosinophils # 0.2 K/mm3 (0.0-0.4); Eosinophils % 4.4 % (0.1-12.0); Hematocrit 40.2 % (37.0-47.0); Hemoglobin 13.4 g/dL (12.2-16.2); Lymphocytes # 1.5 K/mm3 (0.7-4.5); Lymphocytes % 27.8 % (10-50); Mean Corpuscular HGB Conc 33.3 g/dL (31.8-35.4); Mean Corpuscular Hemoglobin 29.2 pg (27.0-31.2); Mean Corpuscular Volume 87.6 fl (81-99); Mean Platelet Volume 8.1 fl (7.4-10.4); Monocytes # 0.3 K/mm3 (0.1-1.0); Monocytes % 4.7 % (1.7-9.3); Neutrophils # 3.4 K/mm3 (1.8-7.8); Neutrophils % 62.3 % (37.0-80.0); Platelet Count 235 K/mm3 (142-424); Red Blood Count 4.59 M/mm3 (4.20-5.40); Red Cell Distribution Width 15.2 % (11.5-17.5); White Blood Count 5.4 K/mm3 (4.8-10.8)
[2021-08-04 10:15] LABS: Alanine Aminotransferase 42 U/L (12-78); Albumin Level 4.4 g/dl (3.5-5.0); Albumin/Globulin Ratio 1.8 (1.1-1.8); Alkaline Phosphatase 94 U/L (38-126); Anion Gap 14.3 mEq/L (5-15); Aspartate Amino Transferase 55 U/L (14-36); Bilirubin,Total 0.7 mg/dl (0.2-1.3); Blood Urea Nitrogen 16 mg/dl (7-17); Calcium 9.1 mg/dl (8.4-10.2); Carbon Dioxide 25 mmol/L (22.0-30.0); Chloride 105 mmol/L (98-107); Chol/HDL Ratio 4.1 (1-3.5); Cholesterol 124 mg/dl (140-200); Estimated Glomerular Filt Rate 62 ml/min (>60); GFR (African American) 76 ML/MIN (>60); Globulin 2.5 g/dL (1.3-3.2); Glucose 164 mg/dl (74-100); HDL Cholesterol 30 mg/dl (40-60); Potassium 4.3 mmoL/L (3.5-5.1); Sodium 140 mmol/L (136-145); Total Protein,Serum 6.9 g/dl (6.3-8.2); Triglycerides 258 mg/dl (30-150); VLDL Cholesterol 52 mg/dL (0-40)
[2021-08-04 10:17] LABS: Phosphorous 4.6 mg/dl (2.5-4.5)
[2021-08-04 10:22] LABS: 25-OH Vitamin D, Total 65.8 ng/mL (30-100)
[2021-08-04 10:26] LABS: Direct LDL Cholesterol 45.69 mg/dL (100-129)
[2021-08-04 10:27] LABS: Intact Parathyroid Hormone 34.2 pg/mL (7.5-53.5)
[2021-08-04 10:33] LABS: T4 (Thyroxine) 10.9 ug/dl (5.53-11.0)
[2021-08-04 10:46] LABS: Thyroid Stimulating Hormone 0.72 uIU/mL (0.465-4.68)
[2021-08-04 12:39] LABS: Hemoglobin A1C 7.7 % (4.0-6.0)
[2021-08-04 17:11] LABS: Appearance,Urine SL CLOUDY (Clear); Bilirubin,Urine Negative (Negative); Blood, Urine Negative (Negative); Color,Urine DK YELLOW (Yellow); Glucose,Urine (UA) Negative (Negative); Ketones,Urine Negative (Negative); Leukocyte Esterase,Urine 1+ (Negative); Nitrate,Urine Negative (Negative); PH,Urine 5.5 (5.0-8.5); Protein,Urine Negative (Negative); Specific Gravity, Urine 1.025 (1.005-1.030); Urobilinogen,Urine 0.2 EU/dl (0.2)
[2021-08-04 17:30] LABS: Microalbumin/Creatinine Ratio 25.8
[2021-08-04 17:32] LABS: Creatinine,Urine Random 158 mg/dL (Not Estab.)
[2021-08-04 17:48] LABS: Bacteria,Urine 2+ /lpf
== END ==
PROVIDERS: Nurse Practitioner Family; Visit Provider Internal Medicine Nephrology
DX: E11.8 Type 2 diabetes mellitus with unspecified complications (principal); N39.0 Urinary tract infection, site not specified; R31.9 Hematuria, unspecified; E66.9 Obesity, unspecified; Z68.37 Body mass index [BMI] 37.0-37.9, adult; Z79.84 Long term (current) use of oral hypoglycemic drugs
CPT/HCPCS: 36415; 80053; 80061; 81001; 82043; 82306; 82570; 83036; 83970; 84100; 84155; 84436; 84443; 85025; 87086

== ENCOUNTER → 2021-08-07 13:45 | Outpatient (POV) | payer MEDICARE, SELFPAY | PROVIDERS: Visit Provider Internal Medicine Nephrology | DX: Z00.00 Encounter for general adult medical examination without abnormal findings (principal) ==

== ENCOUNTER 2021-08-23 22:20 | Emergency (ER) | payer MEDICARE, SELFPAY ==
[2021-08-23 22:21] VITALS: BP 152/97; PULSE 69; RESP 16; TEMP 36.8; O2SAT 99; BMI 37.1
--- NOTE | 2021-08-23 22:44 | XR_ITS ---
PROCEDURE INFORMATION: Exam: XR Left Foot Exam date and time: 08/23/2021 10:49 PM Age: 65 years old Clinical indication: Pain and injury or trauma; Other: Dropped object on foot; Blunt trauma; Toes; Left and left lesser toe(s); Injury details: Dropped flower pot on left foot TECHNIQUE: Imaging protocol: XR Left foot. Views: 3 or more views. COMPARISON: CR XR KNEE LT 3V 05/18/2019 2:06 PM FINDINGS: Limitations: Toes obscured on the lateral view due to overlap. Bones/joints: No acute displaced fracture. Hallux valgus. Ilqz-oq-ftbzrpir 1st MTP joint osteoarthrosis. Lateral subluxation of the hallux sesamoids. Medial 1st metatarsal head bunion. Mild degenerative spurring of the midfoot and hindfoot. Large calcaneal enthesophytes. Soft tissues: No radiopaque foreign body. IMPRESSION: No acute finding.
--- NOTE | 2021-08-23 23:15 | HMH.EDLOEX ---
ED Disposition Clinical Impression: Contusion, foot Qualifiers: Encounter type: initial encounter Laterality: left Qualified Code(s): S90.32XA - Contusion of left foot, initial encounter Disposition: Home, Self-Care Condition on Discharge: Good Instructions: DI for Foot Pain Additional Instructions: wt bearing as sheila and see pcp for follow up or podiatry Referrals: Mable Lan APRN [Primary Care Provider] - Maria Antonia Muhammad DPM [Staff Physician] - - Critical Care Critical Care Time: No Attestation: On 08/23/21, the high probability of a clinically significant, sudden or life threatening deterioration of the following system(s) required my full and direct attention, intervention and personal management. The time I documented below is in addition to time spent performing reported procedures but includes the following listed in this critical care notation. Medical Decision Making - Medical Records Medical records reviewed: Yes: I reviewed the patient's medical records. - Yg Inquiry Pt receiving controlled substance: No Vital Signs: 08/23/21 22:21 Temperature 98.3 F Temperature Source Oral Pulse Rate [Left] 69 Respiratory Rate 16 Blood Pressure [Right Arm] 152/97 H Blood Pressure Mean [Right Arm] 115 02 Sat by Pulse Oximetry 99 Oxygen Delivery Method Room Air - Lab Data Lab results reviewed: Yes: I reviewed the patient's lab results. - Radiology Data #1 Image(s): Foot/Toes Image Reviewed: Yes I have reviewed radiologist's interpretation Preliminary Findings: No Fracture Seen Medical Decision Narrative: no def fx seen at this time Lower Extremity Injury HPI - General Chief Complaint: Extremity Injury, Lower Stated Complaint: AO 08/23@11am injured L Foot Time Seen by Provider: 08/23/21 23:15 Mode of Arrival: Ambulatory Source of Information: Patient, Medical Record Limitations: No Limitations Description of Symptoms (Recalled from ER Triage Doc. by RN): pt states that she had been gardening and had assisted her gardening and dropped a flower pot on left foot. there is pain in the left foot on her toes 4/10 has good pulses but states she has limited movement - History of Present Illness HPI Narrative: acute injury to lt foot as pt has sts MD complaint: foot injury Onset (ago): hour(s) Injury: Left: foot Type of Injury: blunt Place: home Severity: moderate Context: direct blow - Related Data Home Medications Medication Instructions Recorded Confirmed Ergocalciferol (Vitamin D2) See Rx Instructions .ROUTE .COMPLEX 08/23/21 08/23/21 [Drisdol] Furosemide [Furosemide 20mg Tab*] See Rx Instructions .ROUTE .COMPLEX 08/23/21 08/23/21 Levothyroxine Sodium [Synthroid See Rx Instructions .ROUTE .COMPLEX 08/23/21 08/23/21 150mcg (0.15mg) tablet] Metformin HCl 1,000 mg PO BID 08/23/21 08/23/21 Simvastatin 20 mg PO DAILY 08/23/21 08/23/21 carvediloL [Carvedilol 3.125mg Tab] 3.125 mg PO BID 08/23/21 08/23/21 Previous Rx's Medication Instructions Recorded aspirin 81 mg tablet,delayed 81 mg PO DAILY #90 tab 12/23/19 release omega 4-mtw-ubh-fish oil 1,000 mg 1 cap PO BID #60 cap 12/23/19 (120 mg-180 mg) capsule lisinopril 2.5 mg tablet 2.5 mg PO DAILY #90 tab 02/21/21 gabapentin 100 mg capsule 100 mg PO TID #90 cap 06/19/21 cholecalciferol (vitamin D3) 50 50 mcg PO DAILY #90 cap 08/01/21 mcg (2,000 unit) capsule Allergies Allergy/AdvReac Type Severity Reaction Status Date / Time hydrochlorothiazide Allergy Severe tongue Verified 07/25/21 10:07 swelling [facility] History - Hepatitis A Screen Attestation statement:: This patient has been screened for Hepatitis A risk factors. I have reviewed the patient's past medical history: Yes Medical History: Reports:: Coronary Artery Disease, Diabetes Mellitus Type 2, Hyperlipidemia, Hypertension, Internal Pacemaker, Kidney Stones Denies:: Cancer, Diabetes Mellitus Type 1, MRSA, Seizures Other Medi
[2021-08-24 00:38] VITALS: BP 135/79; PULSE 80; RESP 19; TEMP 36.8; O2SAT 98
== END 2021-08-24 00:43 | disposition home or self-care (01) ==
PROVIDERS: Emergency Provider Emergency Medicine; PCP Nurse Practitioner Family
DX: S90.32XA Contusion of left foot, initial encounter (principal); I51.89 Other ill-defined heart diseases; I25.10 Atherosclerotic heart disease of native coronary artery without angina pectoris; E78.5 Hyperlipidemia, unspecified; E03.9 Hypothyroidism, unspecified; E11.40 Type 2 diabetes mellitus with diabetic neuropathy, unspecified; E66.9 Obesity, unspecified; Z79.82 Long term (current) use of aspirin; Z79.84 Long term (current) use of oral hypoglycemic drugs; Z88.8 Allergy status to other drugs, medicaments and biological substances; Z68.30 Body mass index [BMI] 30.0-30.9, adult; Z87.442 Personal history of urinary calculi; Z82.49 Family history of ischemic heart disease and other diseases of the circulatory system; Z80.9 Family history of malignant neoplasm, unspecified
CPT/HCPCS: 73630; 99283

== ENCOUNTER → 2021-10-10 10:16 | Outpatient (CLI) | payer MEDICARE, SELFPAY ==
--- NOTE | 2021-10-10 10:16 | CA_ITS ---
APPROVED REPORT EXAM: Comprehensive 2D, Doppler, and color-flow Echocardiogram [employer]aker: Karina Sanchez CRT Ht: 5 ft 6 in Wt: 227lbs BSA: 2.11 BP: 132/84 mmHg Indications: Diabetes, CAD, Hyperlipidemia, Hypertension/HDD, pacer, DD. skin breakdown under left breast, pt tender and unable to obtain more images. 2D Dimensions LVOT 2.05 cm (M/F) 1.5-2.5 M-Mode Dimensions RVDd 2.56 cm (0.9-2.6) LA Diam 2.84 cm (1.9-4.0) LVDd 4.63 cm (3.5-5.7) Ao Diam 3.83 cm (2.0-3.7) LVDs 3.19 cm (3.5-5.7) IVSd 1.35 cm (0.6-1.1) PWd 0.97 cm (0.6-1.1) EF (Teich) 58.90% FS 31.10% EDV (Teich) 98.80 mL ESV (Teich) 40.60 mL LV Diastology E Decel Time 180.00 (160-240 msec) E/A Ratio 0.85 MED E' 7.30 (< 7 cm/sec) MED A' 11.60 cm/s E'/MED E' Ratio 8.16 (>14) LAT E' 7.20 (<10 cm/sec) LAT A' 9.40 cm/s E/LAT E' Ratio 8.28 (>14) Aortic Valve AO Peak GR. 6.20 mmHg Mitral Valve MV A Velocity 70.00 (40-130 cm/s) E/A Ratio 0.85 MV Decel. Time 180.00 (160-240 ms) Pulmonary Valve PV Peak Velocity 59.00 (50-150 cm/s) Tricuspid Valve TR P. Velocity 231.00 cm/s RAP Estimate 10.00 mmHg RVSP 31.40 mmHg Left Ventricle Technically difficult study because of the patient factors and poor acoustic windows. Left atrium is mildly enlarged, left ventricle is normal size mild concentric left ventricular hypertrophy, estimated ejection fraction 55% with no regional wall motion abnormality, grade 1 diastolic dysfunction seen without tissue Doppler evidence of raise left atrial pressure. Right Ventricle Right atrium and right ventricle are normal size and contractility, pacemaker lead seen in right ventricle. Aortic Valve Aortic valve is minimally thickened and fibrosed, there is no aortic stenosis or aortic insufficiency. Mitral Valve Mitral valve grossly normal, there is trace mitral regurgitation. Tricuspid Valve Tricuspid valve grossly normal, there is trace tricuspid regurgitation, tricuspid regurgitation jet velocity is inadequate for calculation of the right ventricular systolic pressure. Pulmonic Valve Pulmonic valve is poorly visualized. Great Vessels Aortic root is normal size. Inferior vena cava is poorly visualized Pericardium No significant pericardial effusion noted. Conclusion 1. Technically difficult study because of the patient factors and poor acoustic windows. 2. Left atrium is mildly enlarged, mild concentric left ventricular hypertrophy, estimated ejection fraction 55% with no regional wall motion abnormality, grade 1 diastolic dysfunction seen without tissue Doppler evidence of raise left atrial pressure. 3. Trace mitral and tricuspid regurgitation. 4. No significant pericardial effusion noted. 5. Inferior vena cava is poorly visualized. Electronically signed by : Rudy Salcedo MD 10/10/2021 19:30:32
== END ==
PROVIDERS: PCP Physician Assistant; Visit Provider Nurse Practitioner Family
DX: E78.2 Mixed hyperlipidemia (principal); I51.89 Other ill-defined heart diseases; R06.00 Dyspnea, unspecified; Z95.0 Presence of cardiac pacemaker
CPT/HCPCS: 93306

== ENCOUNTER → 2021-12-13 17:42 | Outpatient (CLI) | payer MEDICARE, SELFPAY ==
[2021-12-13 15:45] LABS: Basophils # 0.1 K/mm3 (0-0.2); Basophils % 0.8 % (0.1-2.0); Eosinophils # 0.2 K/mm3 (0.0-0.4); Hematocrit 40.2 % (37.0-47.0); Hemoglobin 12.7 g/dL (12.2-16.2); Lymphocytes # 1.5 K/mm3 (0.7-4.5); Mean Corpuscular HGB Conc 31.6 g/dL (31.8-35.4); Mean Corpuscular Hemoglobin 28.2 pg (27.0-31.2); Mean Corpuscular Volume 89.3 fl (81-99); Mean Platelet Volume 9.2 fl (7.4-10.4); Monocytes # 0.3 K/mm3 (0.1-1.0); Monocytes % 4.8 % (1.7-9.3); Neutrophils % 66.4 % (37.0-80.0); Platelet Count 270 K/mm3 (142-424); White Blood Count 6.1 K/mm3 (4.8-10.8)
[2021-12-13 16:04] LABS: Alanine Aminotransferase 39 U/L (12-78); Albumin Level 4.1 g/dl (3.5-5.0); Albumin/Globulin Ratio 1.6 (1.1-1.8); Alkaline Phosphatase 100 U/L (38-126); Anion Gap 17.2 mEq/L (5-15); Aspartate Amino Transferase 56 U/L (14-36); Bilirubin,Total 0.4 mg/dl (0.2-1.3); Blood Urea Nitrogen 10 mg/dl (7-17); Calcium 9.2 mg/dl (8.4-10.2); Carbon Dioxide 22 mmol/L (22.0-30.0); Chloride 106 mmol/L (98-107); Cholesterol 112 mg/dl (140-200); Estimated Glomerular Filt Rate 50 ml/min (>60); GFR (African American) 60 ML/MIN (>60); Globulin 2.5 g/dL (1.3-3.2); Glucose 166 mg/dl (74-100); HDL Cholesterol 28 mg/dl (40-60); Magnesium 1.4 mg/dl (1.6-2.3); Potassium 4.2 mmoL/L (3.5-5.1); Sodium 141 mmol/L (136-145); Total Protein,Serum 6.6 g/dl (6.3-8.2); Triglycerides 284 mg/dl (30-150); VLDL Cholesterol 57 mg/dL (0-40)
[2021-12-13 16:16] LABS: Hemoglobin A1C 7.3 % (4.0-6.0)
[2021-12-13 16:34] LABS: Thyroid Stimulating Hormone 0.28 uIU/mL (0.465-4.68)
[2021-12-13 16:53] LABS: Vitamin B12 209 pg/mL (239-931)
[2021-12-13 17:20] LABS: Ferritin 96.8 ng/ml (11.1-264)
[2021-12-15 08:22] LABS: Direct LDL Cholesterol 43 mg/dL (100-129)
== END ==
PROVIDERS: PCP Physician Assistant; Visit Provider Physician Assistant
DX: E11.42 Type 2 diabetes mellitus with diabetic polyneuropathy (principal); Z79.84 Long term (current) use of oral hypoglycemic drugs; Z79.899 Other long term (current) drug therapy
CPT/HCPCS: 80053; 80061; 82607; 82728; 83036; 83735; 84443; 85025

== ENCOUNTER → 2022-05-28 08:45 | Outpatient (CLI) | payer MEDICARE, SELFPAY ==
[2022-05-28 14:26] LABS: Adenovirus F 40/41, stool Not Detected (NotDetected); Astrovirus Not Detected (NotDetected); Campylobacter Not Detected (NotDetected); Clostridium Difficile A/B, PCR Not Detected (NotDetected); Cryptosporidium Not Detected (NotDetected); Cyclospora Cayetanesis Not Detected (NotDetected); Entamoeba histolytica Not Detected (NotDetected); Enteroaggregative E coli Not Detected (NotDetected); Enteropathogenic E coli Not Detected (NotDetected); Enterotoxigenic E coli Not Detected (NotDetected); Giardia lamblia Not Detected (NotDetected); Norovirus Not Detected (NotDetected); Plesimonas Shigalloides, PCR Not Detected (NotDetected); Rotavirus A Not Detected (NotDetected); Salmonella, PCR Not Detected (NotDetected); Sapovirus Not Detected (NotDetected); Shiga-like toxin E coli Not Detected (NotDetected); Shigella Enterovasive E coli Not Detected (NotDetected); Vibrio Cholerae Not Detected (NotDetected); Vibrio, PCR Not Detected (NotDetected); Yersinia Entercolitica, PCR Not Detected (NotDetected)
[2022-05-28 14:56] LABS: Basophils % 0.5 % (0.1-2.0); Eosinophils # 0.2 K/mm3 (0.0-0.4); Eosinophils % 2.8 % (0.1-12.0); Hematocrit 37.9 % (37.0-47.0); Hemoglobin 12.2 g/dL (12.2-16.2); Lymphocytes # 0.8 K/mm3 (0.7-4.5); Lymphocytes % 14.5 % (10-50); Mean Corpuscular HGB Conc 32.3 g/dL (31.8-35.4); Mean Corpuscular Hemoglobin 27.1 pg (27.0-31.2); Mean Platelet Volume 8.9 fl (7.4-10.4); Monocytes # 0.3 K/mm3 (0.1-1.0); Monocytes % 5.9 % (1.7-9.3); Neutrophils # 4.4 K/mm3 (1.8-7.8); Neutrophils % 76.4 % (37.0-80.0); Platelet Count 352 K/mm3 (142-424); Red Blood Count 4.51 M/mm3 (4.20-5.40); Red Cell Distribution Width 15.5 % (11.5-17.5); White Blood Count 5.8 K/mm3 (4.8-10.8)
[2022-05-28 15:03] LABS: Alanine Aminotransferase 21 U/L (12-78); Albumin Level 3.9 g/dl (3.5-5.0); Albumin/Globulin Ratio 1.7 (1.1-1.8); Alkaline Phosphatase 69 U/L (38-126); Amylase 71 U/L (30-110); Aspartate Amino Transferase 47 U/L (14-36); Bilirubin,Total 0.5 mg/dl (0.2-1.3); Blood Urea Nitrogen 35 mg/dl (7-17); Calcium 8.8 mg/dl (8.4-10.2); Carbon Dioxide 24 mmol/L (22.0-30.0); Chloride 107 mmol/L (98-107); Chol/HDL Ratio 3.2 (1-3.5); Cholesterol 112 mg/dl (140-200); Estimated Glomerular Filt Rate 37 ml/min (>60); GFR (African American) 45 ML/MIN (>60); Globulin 2.3 g/dL (1.3-3.2); Glucose 95 mg/dl (74-100); HDL Cholesterol 35 mg/dl (40-60); Lipase 185 U/L (23-300); Sodium 138 mmol/L (136-145); Total Protein,Serum 6.2 g/dl (6.3-8.2); Triglycerides 198 mg/dl (30-150); VLDL Cholesterol 40 mg/dL (0-40)
[2022-05-28 15:33] LABS: Thyroid Stimulating Hormone 2.15 uIU/mL (0.465-4.68)
[2022-05-28 15:34] LABS: Hemoglobin A1C 5.8 % (4.0-6.0)
== END ==
PROVIDERS: PCP Physician Assistant; Visit Provider Physician Assistant
DX: R10.9 Unspecified abdominal pain (principal); B95.1 Streptococcus, group B, as the cause of diseases classified elsewhere; R19.7 Diarrhea, unspecified; I10 Essential (primary) hypertension; E11.9 Type 2 diabetes mellitus without complications; Z79.84 Long term (current) use of oral hypoglycemic drugs
CPT/HCPCS: 80053; 80061; 82043; 82150; 83036; 83690; 84443; 85025; 87086; 87088; 87186; 87506

== ENCOUNTER → 2022-05-29 06:58 | Outpatient (CLI) | payer MEDICARE, SELFPAY ==
[2022-05-29 09:11] LABS: Anion Gap 16.8 mEq/L (5-15); Blood Urea Nitrogen 35 mg/dl (7-17); Calcium 8.7 mg/dl (8.4-10.2); Carbon Dioxide 22 mmol/L (22.0-30.0); Chloride 104 mmol/L (98-107); Estimated Glomerular Filt Rate 37 ml/min (>60); GFR (African American) 45 ML/MIN (>60); Glucose 96 mg/dl (74-100); Potassium 5.8 mmoL/L (3.5-5.1); Sodium 137 mmol/L (136-145)
== END ==
PROVIDERS: PCP Physician Assistant; Visit Provider Physician Assistant
DX: E87.5 Hyperkalemia (principal)
CPT/HCPCS: 36415; 80048

== ENCOUNTER → 2022-06-06 09:26 | Outpatient (CLI) | payer MEDICARE, SELFPAY ==
--- NOTE | 2022-06-06 09:27 | US_ITS ---
FINAL REPORT CLINICAL HISTORY: Abdominal pain FINDINGS: RIGHT UPPER QUADRANT ULTRASOUND Sonographic images of the right upper quadrant were obtained. Exam is suboptimal. The pancreas is partially obscured. The liver may be mildly enlarged but difficult to see. The gallbladder appears normal without evidence of gallstones.The common duct is normal. There is a large amount of ascites. There is a 1.8 cm right renal cyst. IMPRESSION: Large amount of ascites. Right renal cysts. Reviewed, Interpreted and Dictated by Forest Mcdermott MD Transcribed by Kristen Colvin Authenticated and [facility]
== END ==
PROVIDERS: PCP Physician Assistant; Visit Provider Physician Assistant
DX: R10.9 Unspecified abdominal pain (principal)
CPT/HCPCS: 76705

== ENCOUNTER 2022-06-07 08:55 | Emergency (ER) | payer MEDICARE, SELFPAY ==
[2022-06-07] VITALS (70 sets, daily range): BP systolic 73–119; BP diastolic 35–83; PULSE 11–103; RESP 16–28; TEMP 36.4–36.7; O2SAT 93–100; BMI 36.9
--- NOTE | 2022-06-07 09:21 | XR_ITS ---
FINAL REPORT TECHNIQUE: Single view chest CLINICAL HISTORY: sob COMPARISON: 05/30/2017 FINDINGS: A single view of the chest was obtained. The heart wall is mildly enlarged. A pacemaker is in place. There is a small left pleural effusion and left lower lobe atelectasis, new from prior exam. There is no pneumothorax. Osseous structures are unremarkable. IMPRESSION: Small left pleural effusion and left lower lobe atelectasis. Reviewed, Interpreted and Dictated by Forest Mcdermott MD Transcribed by Maxine Orzoco Authenticated and [facility]
[2022-06-07 09:30] LABS: Basophils % 0.4 % (0.1-2.0); Eosinophils % 0.4 % (0.1-12.0); Hematocrit 35.8 % (37.0-47.0); Hemoglobin 11.7 g/dL (12.2-16.2); Lymphocytes # 0.8 K/mm3 (0.7-4.5); Lymphocytes % 9.2 % (10-50); Mean Corpuscular HGB Conc 32.7 g/dL (31.8-35.4); Mean Corpuscular Hemoglobin 28.8 pg (27.0-31.2); Mean Corpuscular Volume 88.2 fl (81-99); Mean Platelet Volume 8.1 fl (7.4-10.4); Monocytes # 0.3 K/mm3 (0.1-1.0); Monocytes % 3.9 % (1.7-9.3); Neutrophils # 7.4 K/mm3 (1.8-7.8); Neutrophils % 86.1 % (37.0-80.0); Platelet Count 474 K/mm3 (142-424); Red Blood Count 4.06 M/mm3 (4.20-5.40); Red Cell Distribution Width 15.4 % (11.5-17.5); White Blood Count 8.6 K/mm3 (4.8-10.8)
[2022-06-07 09:31] LABS: MANUAL DIFFERENTIAL MANUAL DIFFERENTIAL (MANUAL DIFF)
--- NOTE | 2022-06-07 09:37 | ECG_ITS ---
APPROVED REPORT Exam: Resting ECG HR:87 bpm ECG Measurements Heart Rate 87 AXES MO 195 P 62 QRSd 109 QRS 120 QT 389 T 14 QTc 433 Conclusion SINUS RHYTHM POSSIBLE RIGHT VENTRICULAR HYPERTROPHY [SOME/ALL OF: PROMINENT R IN V1, LATE TRANSITION, RAD, SARAH, SSS] ABNORMAL ECG UNCONFIRMED REPORT Electronically signed by : Don Daniel MD 06/07/2022 17:29:28
[2022-06-07 09:43] LABS: Alanine Aminotransferase 23 U/L (12-78); Albumin Level 4.2 g/dl (3.5-5.0); Albumin/Globulin Ratio 1.6 (1.1-1.8); Alkaline Phosphatase 76 U/L (38-126); Aspartate Amino Transferase 51 U/L (14-36); Bilirubin,Total 0.5 mg/dl (0.2-1.3); Calcium 8.2 mg/dl (8.4-10.2); Chloride 103 mmol/L (98-107); Creatinine Clearance Estimated 8 mL/min (50-200); Estimated Glomerular Filt Rate 4 ml/min (>60); GFR (African American) 4 ML/MIN (>60); Globulin 2.7 g/dL (1.3-3.2); Glucose 83 mg/dl (74-100); Sodium 133 mmol/L (136-145); Total Protein,Serum 6.9 g/dl (6.3-8.2)
[2022-06-07 09:44] LABS: Anion Gap 29.2 mEq/L (5-15)
--- NOTE | 2022-06-07 09:47 | HMH.EDGENADL ---
Discharge Plan Disposition Condition: Serious Chief Complaint: Shortness of Breath/Dyspnea Prescriptions Prescriptions: No Action omega 9-qnu-xnn-fish oil 1,200 (144-216) mg capsule 1 cap PO BID cholecalciferol (vitamin D3) 50 mcg (2,000 unit) capsule 50 mcg PO DAILY Qty: 90 3RF aspirin 81 mg tablet,delayed release (DR/EC) 81 mg PO DAILY Qty: 90 3RF lisinopril 2.5 mg tablet 2.5 mg PO DAILY Qty: 90 3RF simvastatin 20 mg tablet 20 mg PO DAILY Qty: 90 3RF (DME) syringe with needle, safety 3 mL 25 gauge x 5/8 3 mL 25 gauge x 5/8 syringe See Rx Instructions .ROUTE .MEDSUPPLY Qty: 100 1RF Rx Instructions: To use for B-12 injection cyanocobalamin (vitamin B-12) 1,000 mcg/mL solution 1,000 mcg IM QMONTH Qty: 100 2RF Rx Instructions: Pt to inject 1ml daily x7 days, then decrease to inject 1ml weekly x4 weeks, then decrease to inject 1ml every month. carvedilol 3.125 mg tablet 3.125 mg PO BID Qty: 90 3RF ergocalciferol (vitamin D2) 1,250 mcg (50,000 unit) capsule 50,000 unit PO WEEKLY Qty: 14 3RF gabapentin 100 mg capsule 100 mg PO TID Qty: 90 2RF metformin 500 mg tablet See Rx Instructions .ROUTE .COMPLEX Rx Instructions: TAKE 2 TABLETS BY MOUTH TWICE DAILY FOR DIABETES levothyroxine 150 mcg tablet See Rx Instructions .ROUTE .COMPLEX Rx Instructions: TAKE 1 TABLET BY MOUTH DAILY FOR THYROID ferrous sulfate 142 mg (45 mg iron) tablet extended release 142 mg PO DAILY cyanocobalamin (vitamin B-12) 5,000 mcg tablet,disintegrating 5,000 mcg PO DAILY bumetanide 0.5 mg tablet 0.5 mg PO DAILY Referrals Follow up/Referrals: Jayne Queen PA [Primary Care Provider] - See instructions Clinical Impressions Clinical Impression: Acute renal failure, Anasarca, Ascites, Pleural effusion, left, Acute hyperkalemia, Metabolic acidosis, 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 by RN): pt reports shortness of breath for a few days, also reports increased swelling in BLE, states she has had chest pain off and on for a few days as well and has been shaking History of Present Illness HPI narrative: Patient states that she has been sick for about 2 months. She has had diarrhea, shortness of breath, swelling of her legs and abdomen, shakiness, blurry vision. She saw her primary care provider on 05/28/2022. She had an ultrasound of her gallbladder which showed a large amount of fluid in her abdomen. She says she is scheduled to have the fluid drawn off, paracentesis, on this coming 06/11/2022. She was also told that her potassium was high. No prior history of ascites, no history of liver problems. Related Data Home Medications Medication Instructions Recorded Confirmed omega 6-sod-dzu-fish oil 1,200 mg 1 cap PO BID Supplement 01/24/22 06/07/22 (144 mg-216 mg) capsule bumetanide 0.5 mg tablet 0.5 mg PO DAILY fluid 06/07/22 06/07/22 cyanocobalamin (vitamin B-12) 5,000 mcg PO DAILY Supplement 06/07/22 06/07/22 5,000 mcg disintegrating tablet ferrous sulfate 142 mg (45 mg 142 mg PO DAILY . 06/07/22 06/07/22 iron) tablet,extended release levothyroxine 150 mcg tablet See Rx Instructions .Route 06/07/22 06/07/22 .COMPLEX hypothyroidism metformin 500 mg tablet See Rx Instructions .Route 06/07/22 06/07/22 .COMPLEX Diabetes Previous Rx's Medication Instructions Recorded cholecalciferol (vitamin D3) 50 50 mcg PO DAILY Supplement #90 caps
[2022-06-07 09:48] LABS: Lactic Acid 1.4 mmol/L (0.7-2.1)
[2022-06-07 09:53] LABS: Lymphocytes % 10 % (10-50); Monocytes % 4 % (2-9); Neutrophils % 86 % (42-76); Total Cells Counted 100
[2022-06-07 09:54] LABS: RBC Morphology Normal
[2022-06-07 09:55] LABS: Platelet Estimate Slight Increase
[2022-06-07 09:57] LABS: Troponin I < 0.01 ng/ml (0.00-0.034)
[2022-06-07 09:59] LABS: Blood Urea Nitrogen 98 mg/dl (7-17); Carbon Dioxide 7 mmol/L (22.0-30.0); Potassium 6.2 mmoL/L (3.5-5.1)
--- NOTE | 2022-06-07 09:59 | PC.NURSE ---
lab called with critical results potassium 6.2, co2 7, BUN 98. and creat 10.6. Dr Jude cantrell.
--- NOTE | 2022-06-07 10:15 | PC.NURSE ---
ER at ; family at
--- NOTE | 2022-06-07 10:15 | PC.NURSE ---
pt ambulatory back from restroom with assistance from [employer]. No complications
[2022-06-07 10:24] LABS: Magnesium 1.6 mg/dl (1.6-2.3)
--- NOTE | 2022-06-07 10:28 | PC.NURSE ---
Rounded on patient and family member at this time. Updated them on POC and addressed if there were any issues/concerns. Pt advised she was ok at this time and had no new needs.
--- NOTE | 2022-06-07 10:30 | PC.NURSE ---
Called [facility] to see if they will accept patient for transfer.
[2022-06-07 10:32] LABS: INR 1.08 (0.9-1.1); Prothrombin Time 11.6 seconds (10.1-12.5)
--- NOTE | 2022-06-07 10:35 | PC.NURSE ---
respiratory called with critical values bicarb 9, ph 7.02, co2 35 and base access -22. Dr Jude cantrell.
[2022-06-07 10:39] LABS: VBG Base Excess -22.2 mmol/L (-2.4-2.3); VBG HCO3 8.8 mmol/L (23-30); VBG PCO2 35.3 mmol/L (35-51); VBG PH 7.02 mmol/L (7.31-7.41); VBG PO2 42.7 mmol/L (28-40); VBG Total CO2 9.9 mmol/L (23-27)
[2022-06-07 10:41] LABS: Coronavirus 19, PCR Not Detected (NotDetected); Influenza A, PCR Not Detected (NotDetected); Influenza B, PCR Not Detected (NotDetected)
--- NOTE | 2022-06-07 10:56 | PC.NURSE ---
Dr Roque talked to Dr Aguero. They are on divert and stated to look for another facility.
--- NOTE | 2022-06-07 11:00 | PC.NURSE ---
Calling [facility] to find facility for transfer.
--- NOTE | 2022-06-07 11:10 | PC.NURSE ---
[facility] to call back about patient.
--- NOTE | 2022-06-07 12:13 | PC.NURSE ---
[facility] would have to place patient on a pending list ; so we have contacted [facility] and waiting on a call back from Hospitalist.
[2022-06-07 12:33] LABS: Anion Gap 29.3 mEq/L (5-15); Calcium 7.8 mg/dl (8.4-10.2); Chloride 103 mmol/L (98-107); Creatinine Clearance Estimated 9 mL/min (50-200); Estimated Glomerular Filt Rate 4 ml/min (>60); GFR (African American) 5 ML/MIN (>60); Glucose 95 mg/dl (74-100); Sodium 135 mmol/L (136-145)
--- NOTE | 2022-06-07 12:33 | PC.NURSE ---
Dr Roque talking to Dr Michelle from [facility] about transfer of patient.
--- NOTE | 2022-06-07 12:34 | CT_ITS ---
FINAL REPORT TECHNIQUE: Axial images through the abdomen and pelvis were performed without contrast.This study was performed with techniques to keep radiation doses as low as reasonably achievable, (ALARA). Individualized dose reduction techniques using automated exposure control or adjustment of mA and/or kV according to the patient's size were employed. CLINICAL HISTORY: epigastric pain + cramping, anasarca w sched parac COMPARISON: 10/26/2019 FINDINGS: ABDOMEN: There is a moderate left and small to moderate right pleural effusion. There is left lower lobe consolidation. There is streak artifact arising from pacemaker leads. The heart size is normal. Limited images of the liver are unremarkable. The spleen is normal. No adrenal mass is identified. The aorta is normal in caliber. There are small bilateral, nonobstructing renal stones. Previously seen left renal stent is no longer identified. There is no hydronephrosis. There is new, extensive abdominal and pelvic ascites. Ascites demonstrates a mean attenuation value of 7 Hounsfield units. There is extensive abnormal attenuation seen throughout the omentum and peritoneal margin highly concerning for omental and peritoneal metastasis. PELVIS: The appendix is not identified. The urinary bladder is unremarkable. There is no significant adenopathy. 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 Recommend diagnostic paracentesis. Small to moderate pleural effusions with left lower lobe consolidation. Reviewed, Interpreted and Dictated by Forest Mcdermott MD Transcribed by Maxine Orozco Authenticated and . [facility]
[2022-06-07 12:41] LABS: Carbon Dioxide 9 mmol/L (22.0-30.0); Potassium 6.3 mmoL/L (3.5-5.1)
[2022-06-07 12:43] LABS: Blood Urea Nitrogen 98 mg/dl (7-17)
[2022-06-07 12:54] LABS: Troponin I < 0.01 ng/ml (0.00-0.034)
[2022-06-07 14:02] LABS: Anion Gap 29.2 mEq/L (5-15); Calcium 7.6 mg/dl (8.4-10.2); Chloride 105 mmol/L (98-107); Creatinine Clearance Estimated 9 mL/min (50-200); Estimated Glomerular Filt Rate 4 ml/min (>60); GFR (African American) 5 ML/MIN (>60); Glucose 92 mg/dl (74-100); Sodium 134 mmol/L (136-145)
[2022-06-07 14:09] LABS: Blood Urea Nitrogen 98 mg/dl (7-17); Carbon Dioxide 6 mmol/L (22.0-30.0); Potassium 6.2 mmoL/L (3.5-5.1)
--- NOTE | 2022-06-07 14:10 | PC.WOUNDNOTE ---
Cassie from lab called critical on patient, K-6.2 CO2-6 BUN-98 Creatinine 10.1
--- NOTE | 2022-06-07 14:37 | PC.NURSE ---
Called [facility] of patient. Calling back to [facility] to change status of patient to needing ICU bed for patient.
--- NOTE | 2022-06-07 14:57 | PC.NURSE ---
Called [facility] to transfer patient. Gave patient info to transfer center, they are going to talk to hospitalist and call [facility] back.
--- NOTE | 2022-06-07 15:04 | PC.NURSE ---
[facility] called back and they are at capacity for dialysis patients and will no have openings till saturday.
--- NOTE | 2022-06-07 15:18 | PC.NURSE ---
[facility] declined patient again.
--- NOTE | 2022-06-07 15:23 | PC.NURSE ---
Calling [facility] for transfer of patient. Stated they are at at capacity, put on waiting list
--- NOTE | 2022-06-07 15:30 | PC.NURSE ---
[facility] in [place] called and they will talk to hospitalist and call back.
--- NOTE | 2022-06-07 15:36 | PC.NURSE ---
increased levophed drip to 8mcg/min.
--- NOTE | 2022-06-07 16:01 | PC.NURSE ---
Dr Roque talking to hospitalist [facility] in [place] about patient to see if they will accept patient.
--- NOTE | 2022-06-07 16:09 | PC.NURSE ---
FINGERSTICK OBTAINED 92
--- NOTE | 2022-06-07 16:12 | XR_ITS ---
FINAL REPORT CLINICAL HISTORY: increasing work of breathing COMPARISON: 06/07/2022 FINDINGS: PORTABLE CHEST A left subclavian pacemaker is present. There is mild cardiomegaly. There is blunting of the left costophrenic angle which is probably due to a small left pleural effusion. The mediastinum is unremarkable. The lungs are clear. There is no pneumothorax. IMPRESSION: Stable exam. Reviewed, Interpreted and Dictated by Forest Mcdermott MD Transcribed by Caroline Cortez Authenticated and [facility]
--- NOTE | 2022-06-07 16:13 | PC.NURSE ---
[facility] accepted pt at this time. states they will call back with a bed assignment
[2022-06-07 16:14] LABS: POC Glucose,Bedside 92 (70-110)
--- NOTE | 2022-06-07 16:16 | PC.NURSE ---
PLACED PT ON 2L NC FOR COMFORT.
--- NOTE | 2022-06-07 16:44 | PC.NURSE ---
[facility] SPEAKING TO [facility] ABOUT TRANSFER TO [facility] AT THIS TIME.
--- NOTE | 2022-06-07 16:49 | PC.NURSE ---
[facility] agreed to transport of pt in critical condition on levo drip and continuous bicarb to [facility] ICU in [place], [place]
--- NOTE | 2022-06-07 16:54 | PC.NURSE ---
Completed report to ANNETTE Jacobs and notified that [facility] will transport pt. No further questions at this time
[2022-06-07 17:04] LABS: NT Pro Brain Natriuretic Pep. 2860 pg/mL (0-125)
--- NOTE | 2022-06-07 19:02 | PC.NURSE ---
Pt waiting for transport. No ambulance available at this time.
--- NOTE | 2022-06-07 19:06 | PC.NURSE ---
Attempted to call [facility] to request transport. No answer at this time.
--- NOTE | 2022-06-07 19:25 | PC.NURSE ---
Pt's cotton catheter replaced with a 16 Fr temp-sensing, placed in sterile technique into the bladder presuming no urethral fistula or other anatomic abnormality, with 10mL saline balloon inflated. However, there remains no urine output
--- NOTE | 2022-06-07 19:30 | PC.NURSE ---
Dr. Roque notified of the placement of temp. cotton and not having any urine output despite having 500ml of urine show up on the bladder scanner. he stated he believes the bladder scanner is picking up the ascites pool in that area and that she is not actually making urine.
--- NOTE | 2022-06-07 19:30 | PC.NURSE ---
Spoke with [facility]. Neither are available for transport.
--- NOTE | 2022-06-07 19:39 | PC.NURSE ---
called [facility] for transport. no coverage for Juanjose la.
--- NOTE | 2022-06-07 19:41 | PC.NURSE ---
[facility] called back no transport available
--- NOTE | 2022-06-07 20:26 | PC.NURSE ---
[facility] at bedside for pt transfer
== END 2022-06-07 20:35 | disposition critical access hospital (66) ==
PROVIDERS: Emergency Provider Emergency Medicine; PCP Physician Assistant
DX: N17.9 Acute kidney failure, unspecified (principal); R18.8 Other ascites; J90 Pleural effusion, not elsewhere classified; E87.5 Hyperkalemia; E87.29 Other acidosis; C80.1 Malignant (primary) neoplasm, unspecified; C78.6 Secondary malignant neoplasm of retroperitoneum and peritoneum; I95.9 Hypotension, unspecified; E11.9 Type 2 diabetes mellitus without complications; Z95.0 Presence of cardiac pacemaker; I50.9 Heart failure, unspecified; E78.5 Hyperlipidemia, unspecified; I11.0 Hypertensive heart disease with heart failure; E11.40 Type 2 diabetes mellitus with diabetic neuropathy, unspecified; Z87.891 Personal history of nicotine dependence; Z20.822 Contact with and (suspected) exposure to COVID-19
CPT/HCPCS: 51702; 71045; 74176; 80048; 80053; 82803; 82962; 83605; 83735; 83880; 84484; 85007; 85025; 85610; 87040; 93005; 96361; 96374; 96375; 99291; C9803; G0390; J2405; U0003; U0005

== ENCOUNTER 2022-06-18 07:55 | Outpatient (CLI) | payer MEDICARE, SELFPAY ==
[2022-06-18 08:11] VITALS: BMI 36.1
[2022-06-18 08:24] LABS: Basophils % 0.2 % (0.1-2.0); Eosinophils # 0.3 K/mm3 (0.0-0.4); Eosinophils % 4.7 % (0.1-12.0); Hematocrit 32.3 % (37.0-47.0); Hemoglobin 10.7 g/dL (12.2-16.2); Lymphocytes # 0.6 K/mm3 (0.7-4.5); Lymphocytes % 11.8 % (10-50); Mean Corpuscular Hemoglobin 27.6 pg (27.0-31.2); Mean Corpuscular Volume 83.6 fl (81-99); Mean Platelet Volume 7.9 fl (7.4-10.4); Monocytes # 0.1 K/mm3 (0.1-1.0); Monocytes % 2.3 % (1.7-9.3); Neutrophils # 4.5 K/mm3 (1.8-7.8); Neutrophils % 81.1 % (37.0-80.0); Platelet Count 255 K/mm3 (142-424); Red Blood Count 3.87 M/mm3 (4.20-5.40); White Blood Count 5.5 K/mm3 (4.8-10.8)
[2022-06-18 08:28] LABS: Chloride 109 mmol/L (98-107); Sodium 139 mmol/L (136-145)
[2022-06-18 08:29] LABS: Potassium 3.6 mmoL/L (3.5-5.1)
[2022-06-18 08:31] LABS: Blood Urea Nitrogen 35 mg/dl (7-17); Creatinine Clearance Estimated 36 mL/min (50-200); Estimated Glomerular Filt Rate 20 ml/min (>60); GFR (African American) 24 ML/MIN (>60)
[2022-06-18 08:32] LABS: Anion Gap 11.6 mEq/L (5-15); Calcium 6.7 mg/dl (8.4-10.2); Carbon Dioxide 22 mmol/L (22.0-30.0); Glucose 104 mg/dl (74-100)
== END 2022-06-18 08:16 | disposition home or self-care (01) ==
LOC: INF 07:57
PROVIDERS: PCP Physician Assistant; Visit Provider Nurse Practitioner Family
DX: C76.3 Malignant neoplasm of pelvis (principal); Z45.2 Encounter for adjustment and management of vascular access device
CPT/HCPCS: 36591; 80048; 85025; J1642

== ENCOUNTER 2022-06-20 08:01 | Outpatient (CLI) | payer MEDICARE, SELFPAY ==
[2022-06-20 08:09] VITALS: BMI 36.1
[2022-06-20 08:28] LABS: Chloride 107 mmol/L (98-107)
[2022-06-20 08:29] LABS: Potassium 3.8 mmoL/L (3.5-5.1); Sodium 137 mmol/L (136-145)
[2022-06-20 08:31] LABS: Blood Urea Nitrogen 29 mg/dl (7-17); Creatinine Clearance Estimated 48 mL/min (50-200); Estimated Glomerular Filt Rate 28 ml/min (>60); GFR (African American) 34 ML/MIN (>60)
[2022-06-20 08:32] LABS: Anion Gap 8.8 mEq/L (5-15); Calcium 6.5 mg/dl (8.4-10.2); Carbon Dioxide 25 mmol/L (22.0-30.0); Glucose 124 mg/dl (74-100)
== END 2022-06-20 08:25 | disposition home or self-care (01) ==
PROVIDERS: PCP Physician Assistant; Visit Provider Nurse Practitioner Family
DX: C76.3 Malignant neoplasm of pelvis (principal); Z45.2 Encounter for adjustment and management of vascular access device
CPT/HCPCS: 36591; 80048; J1642

== ENCOUNTER 2022-06-22 07:51 | Outpatient (CLI) | payer MEDICARE, SELFPAY ==
[2022-06-22 08:12] VITALS: BMI 39.6
[2022-06-22 08:30] LABS: Chloride 106 mmol/L (98-107)
[2022-06-22 08:31] LABS: Potassium 3.6 mmoL/L (3.5-5.1); Sodium 138 mmol/L (136-145)
[2022-06-22 08:34] LABS: Anion Gap 7.6 mEq/L (5-15); Blood Urea Nitrogen 21 mg/dl (7-17); Calcium 6.3 mg/dl (8.4-10.2); Carbon Dioxide 28 mmol/L (22.0-30.0); Creatinine Clearance Estimated 54 mL/min (50-200); Estimated Glomerular Filt Rate 32 ml/min (>60); GFR (African American) 39 ML/MIN (>60); Glucose 156 mg/dl (74-100)
[2022-06-22 14:59] LABS: Basophils % 0.8 % (0.1-2.0); Eosinophils # 0.4 K/mm3 (0.0-0.4); Eosinophils % 16.6 % (0.1-12.0); Hematocrit 29.2 % (37.0-47.0); Hemoglobin 9.7 g/dL (12.2-16.2); Lymphocytes # 0.8 K/mm3 (0.7-4.5); Lymphocytes % 29.7 % (10-50); Mean Corpuscular Hemoglobin 27.6 pg (27.0-31.2); Mean Corpuscular Volume 83.5 fl (81-99); Monocytes # 0.1 K/mm3 (0.1-1.0); Monocytes % 2.3 % (1.7-9.3); Neutrophils # 1.3 K/mm3 (1.8-7.8); Neutrophils % 50.7 % (37.0-80.0); Platelet Count 233 K/mm3 (142-424); Red Cell Distribution Width 15.7 % (11.5-17.5); White Blood Count 2.6 K/mm3 (4.8-10.8)
== END 2022-06-22 08:20 | disposition home or self-care (01) ==
LOC: INF 07:52
PROVIDERS: PCP Physician Assistant; Visit Provider Nurse Practitioner Family
DX: Z45.2 Encounter for adjustment and management of vascular access device (principal); C76.3 Malignant neoplasm of pelvis
CPT/HCPCS: 36591; 80048; 85025; J1642

== ENCOUNTER 2022-06-25 07:41 | Outpatient (CLI) | payer MEDICARE, SELFPAY ==
[2022-06-25 08:08] VITALS: BMI 36.1
[2022-06-25 08:37] LABS: Chloride 102 mmol/L (98-107); Potassium 3.5 mmoL/L (3.5-5.1); Sodium 137 mmol/L (136-145)
[2022-06-25 08:40] LABS: Anion Gap 12.5 mEq/L (5-15); Blood Urea Nitrogen 27 mg/dl (7-17); Calcium 6.2 mg/dl (8.4-10.2); Carbon Dioxide 26 mmol/L (22.0-30.0); Creatinine Clearance Estimated 36 mL/min (50-200); Estimated Glomerular Filt Rate 20 ml/min (>60); GFR (African American) 24 ML/MIN (>60); Glucose 124 mg/dl (74-100)
== END 2022-06-25 08:20 | disposition home or self-care (01) ==
PROVIDERS: PCP Physician Assistant; Visit Provider Nurse Practitioner Family
DX: C76.3 Malignant neoplasm of pelvis (principal); Z45.2 Encounter for adjustment and management of vascular access device
CPT/HCPCS: 36591; 80048; J1642

== ENCOUNTER 2022-06-27 07:36 | Outpatient (CLI) | payer MEDICARE, SELFPAY ==
[2022-06-27 08:32] LABS: Anion Gap 12.3 mEq/L (5-15); Blood Urea Nitrogen 27 mg/dl (7-17); Calcium 6.2 mg/dl (8.4-10.2); Carbon Dioxide 26 mmol/L (22.0-30.0); Chloride 98 mmol/L (98-107); Creatinine Clearance Estimated 1 mL/min (50-200); Estimated Glomerular Filt Rate 22 ml/min (>60); GFR (African American) 27 ML/MIN (>60); Glucose 126 mg/dl (74-100); Potassium 3.3 mmoL/L (3.5-5.1); Sodium 133 mmol/L (136-145)
== END 2022-06-27 08:14 | disposition home or self-care (01) ==
LOC: INF 07:37
PROVIDERS: PCP Physician Assistant; Visit Provider Nurse Practitioner Family
DX: C76.3 Malignant neoplasm of pelvis (principal); Z45.2 Encounter for adjustment and management of vascular access device
CPT/HCPCS: 36591; 80048; J1642

== ENCOUNTER 2022-06-29 07:40 | Outpatient (CLI) | payer MEDICARE, SELFPAY ==
[2022-06-29 08:07] VITALS: BMI 36.1
[2022-06-29 10:25] LABS: Blood Urea Nitrogen 24 mg/dl (7-17); Calcium 6.3 mg/dl (8.4-10.2); Carbon Dioxide 27 mmol/L (22.0-30.0); Chloride 95 mmol/L (98-107); Creatinine Clearance Estimated 43 mL/min (50-200); Estimated Glomerular Filt Rate 25 ml/min (>60); GFR (African American) 30 ML/MIN (>60); Glucose 120 mg/dl (74-100); Sodium 134 mmol/L (136-145)
== END 2022-06-29 08:30 | disposition home or self-care (01) ==
LOC: INF 07:41
PROVIDERS: PCP Physician Assistant; Visit Provider Nurse Practitioner Family
DX: C76.3 Malignant neoplasm of pelvis (principal); Z45.2 Encounter for adjustment and management of vascular access device
CPT/HCPCS: 36591; 80048; J1642

== ENCOUNTER 2022-07-02 07:37 | Outpatient (CLI) | payer MEDICARE, SELFPAY ==
[2022-07-02 08:15] VITALS: BMI 33.4
[2022-07-02 08:37] LABS: Microscopic, Urine URINE MICROSCOPIC (MICROSCOPIC)
[2022-07-02 08:41] LABS: Appearance,Urine CLEAR (Clear); Bilirubin,Urine Negative (Negative); Blood, Urine Negative (Negative); Color,Urine YELLOW (Yellow); Glucose,Urine (UA) Negative (Negative); Ketones,Urine Negative (Negative); Leukocyte Esterase,Urine Negative (Negative); Nitrate,Urine Negative (Negative); PH,Urine 5.5 (5.0-8.5); Protein,Urine Negative (Negative); Urobilinogen,Urine 0.2 EU/dl (0.2)
[2022-07-02 08:45] LABS: Potassium 3.3 mmoL/L (3.5-5.1)
[2022-07-02 08:47] LABS: Albumin Level 3.7 g/dl (3.5-5.0); Anion Gap 11.3 mEq/L (5-15); Blood Urea Nitrogen 29 mg/dl (7-17); Calcium 6.4 mg/dl (8.4-10.2); Carbon Dioxide 29 mmol/L (22.0-30.0); Chloride 97 mmol/L (98-107); Creatinine Clearance Estimated 42 mL/min (50-200); Estimated Glomerular Filt Rate 26 ml/min (>60); GFR (African American) 32 ML/MIN (>60); Glucose 142 mg/dl (74-100); Magnesium 1.3 mg/dl (1.6-2.3); Phosphorous 5.6 mg/dl (2.5-4.5); Sodium 134 mmol/L (136-145)
[2022-07-02 08:50] LABS: Creatinine,Urine Random 22 mg/dL (Not Estab.)
[2022-07-02 08:54] LABS: Microalbumin/Creatinine Ratio 45.4
[2022-07-02 09:02] LABS: Bacteria,Urine Trace /lpf; Hyaline Casts,Urine Occasional #/lpf (0); Squamous Epithelial Cell,Urine Occasional #/hpf (0-5)
== END 2022-07-02 08:30 | disposition home or self-care (01) ==
LOC: INF 07:38
PROVIDERS: PCP Physician Assistant; Visit Provider Nurse Practitioner Family
DX: Z45.2 Encounter for adjustment and management of vascular access device (principal); C76.3 Malignant neoplasm of pelvis
CPT/HCPCS: 36591; 80048; 80069; 81001; 82043; 82570; 83735; 84155; J1642

== ENCOUNTER 2022-07-04 07:38 | Outpatient (CLI) | payer MEDICARE, SELFPAY ==
[2022-07-04 08:09] VITALS: BMI 36.1
[2022-07-04 08:31] LABS: Anion Gap 10.7 mEq/L (5-15); Blood Urea Nitrogen 33 mg/dl (7-17); Calcium 6.7 mg/dl (8.4-10.2); Carbon Dioxide 31 mmol/L (22.0-30.0); Chloride 97 mmol/L (98-107); Creatinine Clearance Estimated 43 mL/min (50-200); Estimated Glomerular Filt Rate 25 ml/min (>60); GFR (African American) 30 ML/MIN (>60); Glucose 114 mg/dl (74-100); Potassium 3.7 mmoL/L (3.5-5.1); Sodium 135 mmol/L (136-145)
== END 2022-07-04 08:15 | disposition home or self-care (01) ==
LOC: INF 07:39
PROVIDERS: PCP Physician Assistant; Visit Provider Nurse Practitioner Family
DX: Z45.2 Encounter for adjustment and management of vascular access device (principal); C76.3 Malignant neoplasm of pelvis
CPT/HCPCS: 36591; 80048; J1642

== ENCOUNTER 2022-07-09 07:33 | Outpatient (CLI) | payer MEDICARE, SELFPAY ==
[2022-07-09 08:11] VITALS: BMI 33.4
[2022-07-09 08:27] LABS: Chloride 104 mmol/L (98-107); Potassium 4.1 mmoL/L (3.5-5.1); Sodium 138 mmol/L (136-145)
[2022-07-09 08:30] LABS: Anion Gap 10.1 mEq/L (5-15); Blood Urea Nitrogen 37 mg/dl (7-17); Calcium 6.2 mg/dl (8.4-10.2); Carbon Dioxide 28 mmol/L (22.0-30.0); Creatinine Clearance Estimated 61 mL/min (50-200); Estimated Glomerular Filt Rate 41 ml/min (>60); GFR (African American) 49 ML/MIN (>60); Glucose 110 mg/dl (74-100)
== END 2022-07-09 08:15 | disposition home or self-care (01) ==
LOC: INF 07:33
PROVIDERS: PCP Physician Assistant; Visit Provider Nurse Practitioner Family
DX: Z45.2 Encounter for adjustment and management of vascular access device (principal); C76.3 Malignant neoplasm of pelvis
CPT/HCPCS: 36591; 80048; J1642

== ENCOUNTER 2022-07-11 07:34 | Outpatient (CLI) | payer MEDICARE, SELFPAY ==
[2022-07-11 08:08] VITALS: BMI 33.4
[2022-07-11 08:32] LABS: Anion Gap 12.1 mEq/L (5-15); Blood Urea Nitrogen 32 mg/dl (7-17); Calcium 6.2 mg/dl (8.4-10.2); Carbon Dioxide 28 mmol/L (22.0-30.0); Chloride 102 mmol/L (98-107); Creatinine Clearance Estimated 67 mL/min (50-200); Estimated Glomerular Filt Rate 45 ml/min (>60); GFR (African American) 54 ML/MIN (>60); Glucose 117 mg/dl (74-100); Potassium 4.1 mmoL/L (3.5-5.1); Sodium 138 mmol/L (136-145)
== END 2022-07-11 08:15 | disposition home or self-care (01) ==
LOC: INF 07:35
PROVIDERS: PCP Physician Assistant; Visit Provider Nurse Practitioner Family
DX: Z45.2 Encounter for adjustment and management of vascular access device (principal); C76.3 Malignant neoplasm of pelvis
CPT/HCPCS: 36591; 80048; J1642

== ENCOUNTER 2022-07-13 07:30 | Outpatient (CLI) | payer MEDICARE, SELFPAY ==
[2022-07-13 08:22] LABS: Basophils % 0.8 % (0.1-2.0); Eosinophils # 0.3 K/mm3 (0.0-0.4); Eosinophils % 24.7 % (0.1-12.0); Hematocrit 25.2 % (37.0-47.0); Hemoglobin 8.3 g/dL (12.2-16.2); Lymphocytes # 0.5 K/mm3 (0.7-4.5); Lymphocytes % 39.7 % (10-50); Mean Corpuscular HGB Conc 33.1 g/dL (31.8-35.4); Mean Corpuscular Hemoglobin 27.4 pg (27.0-31.2); Mean Corpuscular Volume 82.9 fl (81-99); Mean Platelet Volume 9.6 fl (7.4-10.4); Monocytes % 3.1 % (1.7-9.3); Neutrophils # 0.4 K/mm3 (1.8-7.8); Neutrophils % 31.7 % (37.0-80.0); Platelet Count 143 K/mm3 (142-424); Red Blood Count 3.04 M/mm3 (4.20-5.40); Red Cell Distribution Width 16.6 % (11.5-17.5); White Blood Count 1.2 K/mm3 (4.8-10.8)
[2022-07-13 08:30] LABS: Anion Gap 14.9 mEq/L (5-15); Blood Urea Nitrogen 28 mg/dl (7-17); Calcium 6.7 mg/dl (8.4-10.2); Carbon Dioxide 25 mmol/L (22.0-30.0); Chloride 100 mmol/L (98-107); Creatinine Clearance Estimated 1 mL/min (50-200); Estimated Glomerular Filt Rate 37 ml/min (>60); GFR (African American) 45 ML/MIN (>60); Glucose 99 mg/dl (74-100); Potassium 3.9 mmoL/L (3.5-5.1); Sodium 136 mmol/L (136-145)
== END 2022-07-13 08:16 | disposition home or self-care (01) ==
LOC: INF 07:30
PROVIDERS: PCP Physician Assistant; Visit Provider Nurse Practitioner Family
DX: Z45.2 Encounter for adjustment and management of vascular access device (principal); C76.3 Malignant neoplasm of pelvis
CPT/HCPCS: 36591; 80048; 85025; J1642

== ENCOUNTER 2022-07-16 07:30 | Outpatient (CLI) | payer MEDICARE, SELFPAY ==
[2022-07-16 08:11] VITALS: BMI 33.4
[2022-07-16 08:31] LABS: Chloride 100 mmol/L (98-107); Potassium 3.4 mmoL/L (3.5-5.1); Sodium 136 mmol/L (136-145)
[2022-07-16 08:34] LABS: Anion Gap 13.4 mEq/L (5-15); Blood Urea Nitrogen 25 mg/dl (7-17); Calcium 6.9 mg/dl (8.4-10.2); Carbon Dioxide 26 mmol/L (22.0-30.0); Creatinine Clearance Estimated 53 mL/min (50-200); Estimated Glomerular Filt Rate 35 ml/min (>60); GFR (African American) 42 ML/MIN (>60); Glucose 117 mg/dl (74-100)
== END 2022-07-16 08:20 | disposition home or self-care (01) ==
LOC: INF 07:31
PROVIDERS: PCP Physician Assistant; Visit Provider Nurse Practitioner Family
DX: Z45.2 Encounter for adjustment and management of vascular access device (principal); C76.3 Malignant neoplasm of pelvis
CPT/HCPCS: 36591; 80048; J1642

== ENCOUNTER 2022-07-18 07:25 | Outpatient (CLI) | payer MEDICARE, SELFPAY ==
[2022-07-18 08:11] VITALS: BMI 36.1
[2022-07-18 08:34] LABS: Anion Gap 13.1 mEq/L (5-15); Blood Urea Nitrogen 24 mg/dl (7-17); Calcium 7.3 mg/dl (8.4-10.2); Carbon Dioxide 28 mmol/L (22.0-30.0); Chloride 101 mmol/L (98-107); Creatinine Clearance Estimated 58 mL/min (50-200); Estimated Glomerular Filt Rate 35 ml/min (>60); GFR (African American) 42 ML/MIN (>60); Glucose 167 mg/dl (74-100); Potassium 3.1 mmoL/L (3.5-5.1); Sodium 139 mmol/L (136-145)
== END 2022-07-18 08:30 | disposition home or self-care (01) ==
LOC: INF 07:26
PROVIDERS: PCP Physician Assistant; Visit Provider Nurse Practitioner Family
DX: Z45.2 Encounter for adjustment and management of vascular access device (principal); C76.3 Malignant neoplasm of pelvis
CPT/HCPCS: 36591; 80048

== ENCOUNTER 2022-07-20 07:31 | Outpatient (CLI) | payer MEDICARE, SELFPAY ==
[2022-07-20 08:27] VITALS: BMI 34.2
[2022-07-20 09:15] LABS: Anion Gap 13.7 mEq/L (5-15); Blood Urea Nitrogen 25 mg/dl (7-17); Calcium 7.4 mg/dl (8.4-10.2); Carbon Dioxide 28 mmol/L (22.0-30.0); Chloride 101 mmol/L (98-107); Creatinine Clearance Estimated 57 mL/min (50-200); Estimated Glomerular Filt Rate 37 ml/min (>60); GFR (African American) 45 ML/MIN (>60); Glucose 109 mg/dl (74-100); Potassium 3.7 mmoL/L (3.5-5.1); Sodium 139 mmol/L (136-145)
== END 2022-07-20 08:15 | disposition home or self-care (01) ==
LOC: INF 07:32
PROVIDERS: PCP Physician Assistant; Visit Provider Nurse Practitioner Family
DX: C76.3 Malignant neoplasm of pelvis (principal); Z45.2 Encounter for adjustment and management of vascular access device
CPT/HCPCS: 36591; 80048; J1642

== ENCOUNTER 2022-07-23 07:26 | Outpatient (CLI) | payer MEDICARE, SELFPAY ==
[2022-07-23 08:26] LABS: Anion Gap 11.8 mEq/L (5-15); Blood Urea Nitrogen 21 mg/dl (7-17); Calcium 7.8 mg/dl (8.4-10.2); Carbon Dioxide 28 mmol/L (22.0-30.0); Chloride 101 mmol/L (98-107); Creatinine Clearance Estimated 1 mL/min (50-200); Estimated Glomerular Filt Rate 37 ml/min (>60); GFR (African American) 45 ML/MIN (>60); Glucose 166 mg/dl (74-100); Potassium 3.8 mmoL/L (3.5-5.1); Sodium 137 mmol/L (136-145)
[2022-07-23 10:43] LABS: Magnesium 1.5 mg/dl (1.6-2.3)
== END 2022-07-23 08:20 | disposition home or self-care (01) ==
LOC: INF 07:27
PROVIDERS: Internal Medicine Nephrology; PCP Physician Assistant; Visit Provider Nurse Practitioner Family
DX: Z45.2 Encounter for adjustment and management of vascular access device (principal); C76.3 Malignant neoplasm of pelvis; N17.9 Acute kidney failure, unspecified
CPT/HCPCS: 36591; 80048; 83735; J1642

== ENCOUNTER 2022-07-25 07:22 | Outpatient (CLI) | payer MEDICARE, SELFPAY ==
[2022-07-25 08:09] VITALS: BMI 36.1
[2022-07-25 08:31] LABS: Anion Gap 13.9 mEq/L (5-15); Blood Urea Nitrogen 22 mg/dl (7-17); Calcium 7.7 mg/dl (8.4-10.2); Carbon Dioxide 27 mmol/L (22.0-30.0); Chloride 100 mmol/L (98-107); Creatinine Clearance Estimated 66 mL/min (50-200); Estimated Glomerular Filt Rate 41 ml/min (>60); GFR (African American) 49 ML/MIN (>60); Glucose 100 mg/dl (74-100); Potassium 3.9 mmoL/L (3.5-5.1); Sodium 137 mmol/L (136-145)
== END 2022-07-25 08:17 | disposition home or self-care (01) ==
LOC: INF 07:23
PROVIDERS: PCP Physician Assistant; Visit Provider Nurse Practitioner Family
DX: Z45.2 Encounter for adjustment and management of vascular access device (principal); C76.3 Malignant neoplasm of pelvis
CPT/HCPCS: 36591; 80048; J1642

== ENCOUNTER 2022-07-30 07:26 | Outpatient (CLI) | payer MEDICARE, SELFPAY ==
[2022-07-30 08:09] VITALS: BMI 38.4
[2022-07-30 08:30] LABS: Chloride 104 mmol/L (98-107)
[2022-07-30 08:31] LABS: Potassium 4.3 mmoL/L (3.5-5.1); Sodium 139 mmol/L (136-145)
[2022-07-30 08:34] LABS: Anion Gap 12.3 mEq/L (5-15); Blood Urea Nitrogen 31 mg/dl (7-17); Calcium 7.7 mg/dl (8.4-10.2); Carbon Dioxide 27 mmol/L (22.0-30.0); Creatinine Clearance Estimated 66 mL/min (50-200); Estimated Glomerular Filt Rate 41 ml/min (>60); GFR (African American) 49 ML/MIN (>60); Glucose 102 mg/dl (74-100)
[2022-07-30 08:35] LABS: Magnesium 1.8 mg/dl (1.6-2.3)
== END 2022-07-30 08:20 | disposition home or self-care (01) ==
PROVIDERS: PCP Physician Assistant; Referring Provider Internal Medicine Nephrology; Visit Provider Nurse Practitioner Family
DX: Z45.2 Encounter for adjustment and management of vascular access device (principal); N17.9 Acute kidney failure, unspecified; C76.3 Malignant neoplasm of pelvis; C78.6 Secondary malignant neoplasm of retroperitoneum and peritoneum
CPT/HCPCS: 36591; 80048; 83735

== ENCOUNTER 2022-08-01 07:26 | Outpatient (CLI) | payer MEDICARE, SELFPAY ==
[2022-08-01 08:08] VITALS: BMI 36.1
[2022-08-01 08:29] LABS: Chloride 103 mmol/L (98-107); Potassium 4.4 mmoL/L (3.5-5.1); Sodium 136 mmol/L (136-145)
[2022-08-01 08:32] LABS: Anion Gap 12.4 mEq/L (5-15); Blood Urea Nitrogen 23 mg/dl (7-17); Carbon Dioxide 25 mmol/L (22.0-30.0); Creatinine Clearance Estimated 72 mL/min (50-200); Estimated Glomerular Filt Rate 45 ml/min (>60); GFR (African American) 54 ML/MIN (>60)
[2022-08-01 08:33] LABS: Calcium 7.8 mg/dl (8.4-10.2); Glucose 109 mg/dl (74-100)
== END 2022-08-01 08:25 | disposition home or self-care (01) ==
LOC: INF 07:27
PROVIDERS: PCP Physician Assistant; Visit Provider Nurse Practitioner Family
DX: C76.3 Malignant neoplasm of pelvis (principal)
CPT/HCPCS: 36591; 80048; J1642

== ENCOUNTER 2022-08-02 19:58 | Emergency (ER) | payer MEDICARE, SELFPAY ==
[2022-08-02] VITALS (8 sets, daily range): BP systolic 101–133; BP diastolic 70–83; PULSE 106–116; RESP 18–25; TEMP 36.6; O2SAT 96–98; BMI 31.9
--- NOTE | 2022-08-02 20:48 | CT_ITS ---
PROCEDURE INFORMATION: Exam: CT Abdomen And Pelvis Without Contrast Exam date and time: 08/02/2022 9:09 PM Age: 66 years old Clinical indication: Abdominal pain; Localized; Left upper quadrant (luq); Prior surgery; Surgery type: Hernia repair; Additional info: Luq abd pain TECHNIQUE: Imaging protocol: Computed tomography of the abdomen and pelvis without contrast. Radiation optimization: All CT scans at this facility use at least one of these dose optimization techniques: automated exposure control; mA and/or kV adjustment per patient size (includes targeted exams where dose is matched to clinical indication); or iterative reconstruction. REPORTING DATA: Count of CT and Cardiac NM exams in prior 12 months: This patient has received [address] and 0 known cardiac nuclear medicine studies in the 12 months prior to the current study. COMPARISON: CT ABDOMEN PELVIS WO CON 06/07/2022 1:21 PM FINDINGS: Limitations: No intravenous contrast was administered. Tubes, catheters and devices: Pacemaker leads terminating in the right atrial appendage and RV apex. RV lead appears to extend into the pericardial fat. There is no significant pericardial effusion. Pleural spaces: Moderate left pleural effusion with compressive atelectasis. Coronary arteries: Mild coronary artery calcifications. Liver: Liver is normal. No lesions. Gallbladder and bile ducts: Gallbladder distention similar to prior. No calcified stones. No gallbladder wall thickening or pericholecystic fluid. Pancreas: Pancreas is normal. No ductal dilatation. Spleen: Spleen is normal. Adrenal glands: Adrenal glands are normal. No mass. Kidneys and ureters: Hypodense lesion in the right kidney most compatible with a benign cyst, no follow-up imaging indicated, measures 1.7 cm. Small atrophic left kidney. Small non-obstructing renal stones bilaterally, largest measures 5 mm on the left. No hydronephrosis or hydroureter. Stomach and bowel: Multiple mildly dilated fluid-filled loops of small bowel in the mid and lower abdomen with small bowel feces sign in the distal small bowel concerning for obstruction. Transition point not definitively seen. Terminal ileum and colon are nondistended. Colonic diverticulosis. Appendix: No evidence of appendicitis. Intraperitoneal space: Diffuse omental and peritoneal soft tissue caking and moderate ascites do not appear significantly changed. No pneumoperitoneum. Vasculature: Calcified aortic atherosclerosis. No AAA. Lymph nodes: No enlarged lymph nodes. Urinary bladder: Urinary bladder is nondistended and unremarkable for degree of distention. Reproductive: Unremarkable as visualized. Bones/joints: No acute osseous abnormality or suspicious osseous lesion. Multilevel degenerative changes of the included spine are again demonstrated. Soft tissues: Unremarkable. IMPRESSION: 1. Multiple mildly dilated loops of small bowel in the mid and lower abdomen with small bowel feces sign in the distal small bowel concerning for obstruction. Transition point not definitively seen. Evaluation for presence of bowel ischemia limited without contrast. 2. Peritoneal and omental caking consistent with metastatic disease and moderate ascites, findings not significantly changed from prior. 3. Moderate left pleural effusion. 4. Atrophic left kidney and small non-obstructing bilateral renal stones. No hydronephrosis. 5. Other chronic and incidental findings as above. COMMENTS: Consistent with the [employer]'s Incidental Findings Committee white paper (J Am Micki Radiol 2018): Any incidental renal lesion less than 1 cm or classified as to
--- NOTE | 2022-08-02 20:48 | XR_ITS ---
PROCEDURE INFORMATION: Exam: XR Chest Exam date and time: 08/02/2022 8:56 PM Age: 66 years old Clinical indication: Other: Tachypneic; Prior surgery TECHNIQUE: Imaging protocol: Radiologic exam of the chest. Views: 2 views. COMPARISON: CR XR CHEST PORTABLE 06/07/2022 4:28 PM FINDINGS: Tubes, catheters and devices: Left chest wall dual lead pacemaker with leads terminating over the right atrial appendage and ventricle. Right chest wall MediPort with catheter tip at the proximal right atrium. Lungs: Right lung is clear. Left basilar compressive atelectasis. Pleural spaces: Moderate appearing left pleural effusion. No pneumothorax. Heart/Mediastinum: Stable cardiomediastinal silhouette. Bones/joints: No acute abnormality. IMPRESSION: Moderate left pleural effusion.
--- NOTE | 2022-08-02 20:58 | HMH.EDABDPAI ---
Discharge Plan Disposition Patient Disposition: Xfer Short-Term Hosp Chief Complaint: Abdominal Pain Prescriptions Prescriptions: No Action omega 9-ybr-pkn-fish oil 1,200 (144-216) mg capsule 1 cap PO BID ondansetron HCl 8 mg tablet 8 mg PO Q8H PRN (Reason: nausea and vomiting, chemo) dexamethasone 4 mg tablet 20 mg PO .As directed Rx Instructions: Take 5 tablets (20mg) by mouth the night before chemo & the morning of chemo. promethazine 25 mg tablet 25 mg PO Q6H PRN (Reason: nausea and vomiting due to chemo) midodrine 10 mg tablet 10 mg PO TID Rx Instructions: Take 1 tablet by mother TID torsemide 20 mg tablet 20 mg PO DAILY cholecalciferol (vitamin D3) 50 mcg (2,000 unit) capsule 50 mcg PO DAILY Qty: 90 3RF aspirin 81 mg tablet,delayed release (DR/EC) 81 mg PO DAILY Qty: 90 3RF simvastatin 20 mg tablet 20 mg PO DAILY Qty: 90 3RF (DME) syringe with needle, safety 3 mL 25 gauge x 5/8 3 mL 25 gauge x 5/8 syringe See Rx Instructions .ROUTE .MEDSUPPLY Qty: 100 1RF Rx Instructions: To use for B-12 injection cyanocobalamin (vitamin B-12) 1,000 mcg/mL solution 1,000 mcg IM QMONTH Qty: 100 2RF Rx Instructions: Pt to inject 1ml daily x7 days, then decrease to inject 1ml weekly x4 weeks, then decrease to inject 1ml every month. ergocalciferol (vitamin D2) 1,250 mcg (50,000 unit) capsule 50,000 unit PO WEEKLY Qty: 14 3RF cyanocobalamin-cobamamide 5,000-100 mcg tablet, sublingual See Rx Instructions .ROUTE .COMPLEX Qty: 80 0RF Dose Instruction: DISSOLVE 1 TABLET UNDER TONGUE ONCE DAILY Rx Instructions: DISSOLVE 1 TABLET UNDER TONGUE ONCE DAILY gabapentin 100 mg capsule 100 mg PO TID Qty: 90 2RF levothyroxine 150 mcg tablet See Rx Instructions .ROUTE .COMPLEX Rx Instructions: TAKE 1 TABLET BY MOUTH DAILY FOR THYROID ferrous sulfate 142 mg (45 mg iron) tablet extended release 142 mg PO DAILY Referrals Follow up/Referrals: Jayne Queen PA [Primary Care Provider] - See instructions Clinical Impressions Clinical Impression: SBO (small bowel obstruction), Type 2 diabetes mellitus with diabetic polyneuropathy, Ovarian malignant neoplasm, DKA (diabetic ketoacidosis) Discharge ED Provider: Ange (ED)Dwight Abdominal Pain HPI General Chief Complaint: Abdominal Pain Stated Complaint: Chemo Pt N&V Time Seen by Provider: 08/02/22 20:58 Mode of Arrival: Family Vehicle Source of Information: Patient, Relative and Medical Record Limitations: No Limitations Description of Symptoms (Recalled from ER Triage Doc. by RN): Pt c/o LUQ ABD pain, n/v/d, and weakness for 3 days. States she has zofran and phenergan at home but only took phenergan @ 0600 today. She reports the abd pain worsens when she is laying down. Pt has ovarian cancer and is supposed to be having surgery, but after her kidney function is better. She does chemo every 3 wk, last dose last Saturday (07/27). Pt has bloodwork every m// and per her ambulatory analyst they wanted her to come to the ER to be checked out. Denies any fever, chills, or SOA. Pt is tachypneic but not labored with her breathing. History of Present Illness HPI narrative: abd pain with diarrhea and vomiting - has hx of chemo therapy last saturday - hx of ovarian hx - no fever MD complaint: abdominal pain Onset (ago): day(s) Consistency: intermittent Location: LLQ Severity: moderate Quality: cramping Radiation: epigastric Associated symptoms: nausea and vomiting Related Data Home Medications Medication Instructions Recorded Confirmed omega 8-iqw-dcd-fish oil 1,200 mg 1 cap PO BID Supplement 01/24/22 06/26/22 (144 mg-216 mg) capsule ferrous sulfate 142 mg (45 mg 142 mg PO DAILY . 06/07/22 06/26/22 iron) tablet,extended release levothyroxine 150 mcg tablet See Rx Instructions .Route 06/07/22 06/26/22 .COMPLEX hypothyroidism dexamethasone 4 mg tabl
--- NOTE | 2022-08-02 21:00 | PC.NURSE ---
Pt has a right subclavian power port. Statse that she see's infusion therapy at [facility] three days a week for labs. Patient port was already accessed with an extension set intact. Tubing was secured with tegaderm and gauze. Patient states that infusion therapy only changes her tubing once a week and leaves the tubing in Saturday thru Saturday for her treatments.
[2022-08-02 21:02] LABS: Basophils % 0.9 % (0.1-2.0); Eosinophils % 0.6 % (0.1-12.0); Hematocrit 28.2 % (37.0-47.0); Lymphocytes # 0.3 K/mm3 (0.7-4.5); Lymphocytes % 23.5 % (10-50); Mean Corpuscular HGB Conc 31.9 g/dL (31.8-35.4); Mean Corpuscular Volume 87.7 fl (81-99); Mean Platelet Volume 8.9 fl (7.4-10.4); Monocytes # 0.2 K/mm3 (0.1-1.0); Monocytes % 16.7 % (1.7-9.3); Neutrophils # 0.9 K/mm3 (1.8-7.8); Neutrophils % 58.3 % (37.0-80.0); Platelet Count 181 K/mm3 (142-424); Red Blood Count 3.21 M/mm3 (4.20-5.40); Red Cell Distribution Width 19.5 % (11.5-17.5); White Blood Count 1.5 K/mm3 (4.8-10.8)
--- NOTE | 2022-08-02 21:03 | PC.NURSE ---
Pt gone to RAD via wheelchair
[2022-08-02 21:05] LABS: Coronavirus 19, PCR Not Detected (NotDetected); Influenza A, PCR Not Detected (NotDetected); Influenza B, PCR Not Detected (NotDetected)
[2022-08-02 21:06] LABS: Alanine Aminotransferase 28 U/L (12-78); Albumin Level 3.6 g/dl (3.5-5.0); Albumin/Globulin Ratio 1.3 (1.1-1.8); Alkaline Phosphatase 65 U/L (38-126); Anion Gap 19.5 mEq/L (5-15); Aspartate Amino Transferase 43 U/L (14-36); Blood Urea Nitrogen 28 mg/dl (7-17); Calcium 7.9 mg/dl (8.4-10.2); Carbon Dioxide 16 mmol/L (22.0-30.0); Chloride 97 mmol/L (98-107); Creatinine Clearance Estimated 48 mL/min (50-200); Estimated Glomerular Filt Rate 32 ml/min (>60); GFR (African American) 39 ML/MIN (>60); Globulin 2.8 g/dL (1.3-3.2); Glucose 208 mg/dl (74-100); Potassium 4.5 mmoL/L (3.5-5.1); Sodium 128 mmol/L (136-145); Total Protein,Serum 6.4 g/dl (6.3-8.2)
[2022-08-02 21:16] LABS: Amylase 50 U/L (30-110)
[2022-08-02 21:17] LABS: Magnesium 1.4 mg/dl (1.6-2.3)
[2022-08-02 21:17] LABS: Lipase 25 U/L (23-300)
--- NOTE | 2022-08-02 21:18 | PC.NURSE ---
Pt back from [facility]. Pt able to obtain urine sample at this time. Pt requested to stay sitting up in wheelchair. No other needs voiced. Call light within reach.
[2022-08-02 21:19] LABS: Microscopic, Urine URINE MICROSCOPIC (MICROSCOPIC)
[2022-08-02 21:25] LABS: Procalcitonin 26.9 ng/mL (0.0-2.0)
[2022-08-02 21:27] LABS: NT Pro Brain Natriuretic Pep. 1540 pg/mL (0-125)
[2022-08-02 21:32] LABS: Appearance,Urine SL CLOUDY (Clear); Blood, Urine 3+ (Negative); Color,Urine DK YELLOW (Yellow); Glucose,Urine (UA) Negative (Negative); Ketones,Urine TRACE (Negative); Leukocyte Esterase,Urine Negative (Negative); Nitrate,Urine Negative (Negative); PH,Urine 5.5 (5.0-8.5); Protein,Urine 2+ (Negative); Specific Gravity, Urine >= 1.030 (1.005-1.030); Urobilinogen,Urine 0.2 EU/dl (0.2)
[2022-08-02 21:33] LABS: Acetone, Serum (Rapid) Small (None Detect)
[2022-08-02 21:38] LABS: Bilirubin,Urine 2+ (Negative)
[2022-08-02 21:49] LABS: INR 1.13 (0.9-1.1); Prothrombin Time 12.1 seconds (10.1-12.5)
--- NOTE | 2022-08-02 21:54 | PC.NURSE ---
Rounded on pt. Advised she was having some abdominal pain and some nausea. RN notified.
[2022-08-02 21:59] LABS: Erythrocyte Sedimentation Rate 126 mm/hr (0-30)
[2022-08-02 22:00] LABS: Bacteria,Urine Trace /lpf; WBC,Urine Occasional #/hpf (0-3)
[2022-08-02 22:06] LABS: Lactic Acid 3.1 mmol/L (0.7-2.1)
--- NOTE | 2022-08-02 22:29 | PC.NURSE ---
Dr. Cassidy at speaking with pt/visitor
--- NOTE | 2022-08-02 22:29 | PC.NURSE ---
Dr. Cassidy at bedside discussing results and plan.
--- NOTE | 2022-08-02 22:52 | PC.NURSE ---
Spoke with transfer center. Advised they would have to give us a call back when they have the provider on the line
--- NOTE | 2022-08-02 22:56 | PC.NURSE ---
Dr. Cassidy speaking with Dr. Miranda at
--- NOTE | 2022-08-02 22:56 | PC.NURSE ---
Called [facility] for transfer and s/w Oksana, they are paging on-call surgery and will call back. Faxed pt face-sheet to [phone]. Radiology will power-share imaging to [facility].
--- NOTE | 2022-08-02 23:44 | PC.NURSE ---
Dr. Cassidy speaking with Dr. Kirkpatrick at [place]
[2022-08-02 23:56] LABS: POC Glucose,Bedside 206 (70-110)
--- NOTE | 2022-08-03 00:17 | PC.NURSE ---
Called [facility] for transport to [facility]. Pt & daughter updated on the time line. Pt's daughter is headed home to collect a bag of clothes.
[2022-08-03 00:20] VITALS: BP 133/74; PULSE 105; RESP 18; TEMP 36.6; O2SAT 99
[2022-08-03 00:54] LABS: Reflex Lactic Add Lactic Reflex
== END 2022-08-03 01:20 | disposition short-term general hospital (02) ==
PROVIDERS: Emergency Provider Emergency Medicine; PCP Physician Assistant
DX: K56.609 Unspecified intestinal obstruction, unspecified as to partial versus complete obstruction (principal); R11.2 Nausea with vomiting, unspecified; C56.9 Malignant neoplasm of unspecified ovary
CPT/HCPCS: 71046; 74176; 80053; 81001; 82009; 82150; 82962; 83605; 83690; 83735; 83880; 84145; 85025; 85610; 85651; 86140; 96360; 96374; 96375; 99285; 99291; C9803; J2405; U0003; U0005